=== PATIENT | male | born 1985 | race Caucasian/White ===

== ENCOUNTER 2021-09-09 03:45 | Emergency (ER) | payer MEDICAID, SELFPAY ==
[2021-09-09 03:53] VITALS: BP 139/86; PULSE 98; RESP 22; TEMP 36.6; O2SAT 98; BMI 51.6
--- NOTE | 2021-09-09 04:13 | ED.EYEPROB ---
HPI - Eye Problem General Date Seen: 09/09/21 Chief complaint: Eye Problems Stated complaint: Right eye feels on fire Time Seen by Provider: 09/09/21 04:03 Source: patient Mode of arrival: ambulatory Limitations: no limitations History of Present Illness HPI Narrative: Patient is a 36-year-old male who was recently told that his intra-ocular pressure was elevated. He was set up to see another eye doctor at the [facility] in about a month. He admits he is very anxious about this diagnosis and what it might mean. He went to sleep last evening without any difficulty. He woke during the night and his eye was very red and irritated. He did get back to sleep but when he awoke again eye irritation kept him from being able to go back to sleep. He had a little bit of drainage on his lashes. His vision is normal. He denies headache. He has no foreign body sensation. Related Data Home Medications Medication Instructions Recorded Confirmed No Known Home Medications 09/09/21 09/09/21 Allergies Allergy/AdvReac Type Severity Reaction Status Date / Time No Known Drug Allergies Allergy Verified 09/09/21 03:53 PFSH PFS Social History Smoking Status: Current every day smoker What tobacco products do you use: cigarettes Smoking packs per day: 0.5 Smoking cigarettes per day: 10.0 Do you use any of these nicotine containing products: None Second hand tobacco smoke exposure: No How often do you have a drink containing alcohol: never AUDIT-C Alcohol total score: 0 Non-prescribed substance use: denies use Exam Const: Vital Signs, click to edit/add: Vital Signs - 24 hr 09/09/21 03:53 Temperature 97.8 F Pulse Rate [Left P ulse Oximeter] 98 Respiratory Rate 22 Blood Pressure [Le ft Upper Arm] 139/86 Pulse Oximetry 98 Oxygen Delivery Me thod Room Air Documenting provider has reviewed patient's vital signs: yes Common normals: no apparent distress General appearance: cooperative and comfortable Nutritional appearance: obese Orientation/consciousness: Yes awake, Yes oriented to person, Yes oriented to place and Yes oriented to time HENMT: Common normals: normocephalic, head/scalp atraumatic, external ears normal, EAC's normal, TM's normal bilaterally and external nose normal Head and scalp: normocephalic and atraumatic Nose: external nose normal and no nasal discharge External ear: external ears normal External auditory canal: EAC's normal Tympanic membrane: TM's normal bilaterally Mouth: oral and palatal mucosa normal Throat: posterior oropharynx normal Eye: Common normals: PERRL and EOMs intact bilaterally Visual acuity: acuity normal Eyelid: eyelids normal Conjunctiva: conjunctiva abnormal (Injected with scant yellow drainage) right Cornea: corneas normal Pupil: PERRL Neck & C-Spine: Common normals: full ROM and no lymphadenopathy Resp: Common normals: normal respiratory effort and clear to auscultation bilaterally Auscultation: clear to auscultation bilaterally Cardio: Common normals: regular rate, regular rhythm, S1 normal heart sound and S2 normal heart sound Rate: regular rate Rhythm: regular rhythm Heart sounds: S1 normal and S2 normal Neuro: Sensorium/orientation: awake, oriented to person, oriented to place and oriented to time Course Course Hospital Course: Patient was seen and examined. No sign of corneal abrasion or foreign body. He is very anxious regarding this new diagnosis and he was given lorazepam 0.5 mg orally at his request so that he will be able to sleep when he gets home. He did have a route driver salesperson present. Vital Signs Vital signs: Initial Vital Signs Temperature 97.8 F 09/09/21 03:53 Temperature Source Temporal Artery Scan 09/09/21 03:53 Pulse Rate 98 09/09/21 03:53 Pulse Rhythm 09/09/21 03:53 Respiratory Rate 09/09/21 03:53 Blood Pressure 139/86 09/09/21 03:53 Blood Pressure Mean 103 09/09/21 03:53 Blood Pressure Position Sitting 09/09/21 03:53 Pulse Oximetry 98 09/09/21 03:53 Oxygen Delivery Method 09/09/21 03:53 Vital Signs Temperature 97.8 F 09/09/21 03:53 Pulse Rate 98 09/09/21 03:53 Respiratory Rate 22 09/09/21 03:53 Blood Pressure 139/86 09/09/21 03:53 Pulse Oximetry 98 09/09/21 03:53 Oxygen Delivery Method 09/09/21 03:53 Temperature 97.8 F 09/09/21 03:53 Pulse Rate 98 09/09/21 03:53 Respiratory Rate 22 09/09/21 03:53 Blood Pressure 139/86 09/09/21 03:53 Pulse Oximetry 98 09/09/21 03:53 Oxygen Delivery Method 09/09/21 03:53 Discharge Plan Discharge Clinical Impression: Bacterial conjunctivitis Patient Disposition: Home, Self-Care Condition: Stable Additional Instructions: Gentamicin two drops right eye 4 times daily for the next five days. Hot packs frequently. Follow-up with your eye doctor if symptoms worsen or do not improve. Activity Level: No Restrictions Prescriptions: No Action No Known Home Medications Stand Alone Forms: [employer] Info Instructions
[2021-09-09] MEDS: LORazepam 0.5 MG TABLET PO (04:25)
--- NOTE | 2021-09-09 04:30 | ED.NURSE ---
pt given abx eye drops with MD written order, pt verbalizes understanding.
--- NOTE | 2021-09-10 12:24 | ED.NURSE ---
Phone call from pt's roommate, Jana. Did receive verbal confirmation from the patient that I could speak with Jana prior to discussing his medical question. Patient was under the impression that a prescription for ativan was going to be sent in electronically after being seen by Dr. Dodge on 09/09. Reviewed chart and notes, pt was given dose of ativan x 1 during his ED stay to help with his anxiety regarding his diagnosis of conjunctivitis. Physician note does not indicate that a prescription was going to be sent in. I was able to discuss with Dr. Dodge, who is in clinic in [facility] today. He did give the patient a one time dose but if the patient requires any further ativan he will need to see his primary MD. Discussed with pt's roommate (pt was in the car and could be heard speaking in the background) that the patient would need to see his primary MD for further ativan.
== END 2021-09-09 04:31 | disposition home or self-care (01) ==
PROVIDERS: Emergency Provider Family Medicine; PCP Family Medicine
DX: H10.021 Other mucopurulent conjunctivitis, right eye (principal)
CPT/HCPCS: 99282; 99283; 99284; A9270

== ENCOUNTER 2021-09-10 16:13 | Emergency (ER) | payer MEDICAID, SELFPAY ==
[2021-09-10 16:30] VITALS: BP 125/97; PULSE 129; RESP 26; TEMP 36.2; O2SAT 95; BMI 51.6
[2021-09-10] MEDS: 0.9 % SODIUM CHLORIDE 1000 ml 1,000 ML IV (16:38)
[2021-09-10] MEDS: EPINEPHrine 0.3 MG PEN IM (16:38)
--- NOTE | 2021-09-10 16:47 | ED.NURSE ---
patient is sleeping in the room and feeling better. stated does not feel as sob as before.
[2021-09-10 16:50] VITALS: BP 99/68; PULSE 131; RESP 16; O2SAT 98
[2021-09-10 17:25] VITALS: BP 88/69; PULSE 130; RESP 26; O2SAT 96
--- NOTE | 2021-09-10 17:49 | ED.NURSE ---
c/o pain in the throat and wants something for pain. Dr. Jacobs is in talking with patient and is aware of the pain in the throat. patient is 2 liters via nc O2 at 2 liters. Up to the bathroom via wc. Unable to walk feeling too short of breathe.
[2021-09-10] MEDS: KETOROLAC 15 MG/ML inj IVP (18:09)
[2021-09-10 18:13] LABS: HCO3 VBG 27 mmol/L (21-28); Lactate* 1.4 mmol/L (0.5-1.9); PCO2 VBG 49 mmHG (40-50); pH VBG 7.344 (7.32-7.43)
[2021-09-10 18:14] LABS: Troponin, Point-of-Care* 0.01 ng/ml (0.01-0.04)
[2021-09-10 18:16] LABS: Basophils Absolute Auto 0.01 K/uL (0.00-0.30); Basophils Percent Auto 0.1 % (0.0-3.0); Eosinophils Absolute Auto 0.19 K/uL (0.00-0.50); Eosinophils Percent Auto 2.8 % (0.0-7.0); Hematocrit 44.1 % (37.0-53.0); Hemoglobin* 14.4 gm/dL (13.5-17.5); Immature Granulocytes Abs Auto 0.03 K/uL (0.00-0.30); Lymphocytes Absolute Auto 2.03 K/uL (0.90-2.90); Lymphocytes Percent Auto 29.7 % (20-44); Mean Corpuscular HGB Conc 33 gm/dL (32-36); Mean Corpuscular Hemoglobin 29 pg (26-34); Mean Corpuscular Volume 87 fL (80-100); Monocytes Percent Auto 6.3 % (0.0-11.0); Neutrophils Absolute Auto 4.14 K/uL (1.7-7.0); Neutrophils Percent Auto 60.7 % (42.0-72.0); Platelet Count* 244 K/uL (140-440); RDW Coefficient of Variation % 13.1 % (11.5-15.5); Red Blood Count 5.05 m/uL (4.30-5.90); White Blood Count* 6.83 K/uL (4.50-11.00)
[2021-09-10 18:18] LABS: Slide Review Reflex No
[2021-09-10 18:34] LABS: Chloride* 107 mmol/L (96-114); Sodium* 138 mmol/L (135-149)
--- NOTE | 2021-09-10 18:35 | ED.NURSE ---
patient is wanting to leave AMA and had patient sign the form as Dr. Jacobs wanted the patient to stay due to 130 HR and observe. patient would fall asleep quickly and stated was due to the Benadryl taken. Patient called mother to pickle solution maker from hospital.
[2021-09-10 18:36] LABS: Creatinine* 0.8 mg/dL (0.5-1.5); Est. Creatinine Clearance* 112.98; Estimated Glomerular Filt Rate 116 ml/min
[2021-09-10 18:37] LABS: Blood Urea Nitrogen* 15 mg/dL (5-24); Calcium* 8.2 mg/dL (8.4-10.6); Carbon Dioxide* 26 mmol/L (20-32); Glucose* 138 mg/dL (60-115)
[2021-09-10 18:47] LABS: NT Pro B Type NatriureticPept* 20 PG/mL (0-125)
--- NOTE | 2021-09-10 19:03 | ED.GENADULT ---
HPI - General Adult General Date Seen: 09/10/21 Chief complaint: Allergic Reaction Stated complaint: Swallowed a bee, severe allergy Time Seen by Provider: 09/10/21 16:45 Source: patient Mode of arrival: ambulatory Limitations: no limitations History of Present Illness HPI narrative: 36-year-old male presents emergency room after swallowing a bee. Patient reports he was feeling fine today. He was drinking 80s soft drink that had to be in it. When he swallowed the be went into his throat and he reports the be bit him. He is allergic to beesting. He self administered an EpiPen approximately 1 hour prior to arrival in the emergency department. He also took Benadryl 50 mg at home. On presentation emergency department he is evaluated and found to be breathing normally. He does not have hoarseness in his voice. He is primarily reporting that his throat hurts. Related Data Home Medications Medication Instructions Recorded Confirmed No Known Home Medications 09/09/21 09/09/21 Allergies Allergy/AdvReac Type Severity Reaction Status Date / Time No Known Drug Allergies Allergy Verified 09/09/21 03:53 PFSH PFSH Social History Smoking Status: Current every day smoker What tobacco products do you use: cigarettes Smoking packs per day: 0.5 Smoking cigarettes per day: 10.0 Do you use any of these nicotine containing products: None Second hand tobacco smoke exposure: No How often do you have a drink containing alcohol: never AUDIT-C Alcohol total score: 0 Non-prescribed substance use: denies use Exam Narrative: Exam Narrative: He has a small airway which appears to be chronic due to obesity without obvious inflammation. There is no stridor. Respirations are clear without wheezing. Cardiovascular S1-S2 regular tachycardia with a pulse in the 130-140 range. Abdomen is soft without tenderness or mass. He has good perfusion of all of his extremities. They are warm to touch with good pulses. No significant edema. Const: Vital Signs, click to edit/add: Vital Signs - 24 hr 09/10/21 16:30 09/10/21 16:50 09/10/21 17:25 Temperature 97.2 F L Pulse Rate [Pulse Oximeter] 129 H 131 H 130 H Respiratory Rate 26 H 16 26 H Blood Pressure [Le ft Forearm] 125/97 H 99/68 88/69 L Pulse Oximetry 95 98 96 Oxygen Delivery Me thod Room Air Room Air Nasal Can nula Nasal Cannula Oxygen Flow Rate 2 Documenting provider has reviewed patient's vital signs: yes Course Course Hospital Course: On arrival evaluation patient showed no definite sign of anaphylaxis, there were no rashes, stridor, airway problem, wheezing or hypotension. The only concern was his tachycardia. He was uncertain whether this was due to his use of Benadryl and epinephrine at home or possibly the beginning of anaphylaxis. He received a 2nd dose of epinephrine here on the assumption that this could be anaphylaxis. He was started on IV fluids as well. He was primarily asking for pain medications. He received Toradol. Re-examination after an hour showed no airway problem or wheezing. Tachycardia persisted in the 130s Vital Signs Vital signs: Initial Vital Signs Temperature 97.2 F L 09/10/21 16:30 Temperature Source Temporal Artery Scan 09/10/21 16:30 Pulse Rate 129 H 09/10/21 16:30 Pulse Rhythm 09/10/21 16:30 Respiratory Rate 26 H 09/10/21 16:30 Blood Pressure 125/97 H 09/10/21 16:30 Blood Pressure Mean 106 09/10/21 16:30 Blood Pressure Position Sitting 09/10/21 16:30 Pulse Oximetry 95 09/10/21 16:30 Oxygen Delivery Method 09/10/21 16:30 Vital Signs Temperature 97.2 F L 09/10/21 16:30 Pulse Rate 129 H 09/10/21 16:30 Respiratory Rate 26 H 09/10/21 16:30 Blood Pressure 125/97 H 09/10/21 16:30 Pulse Oximetry 95 09/10/21 16:30 Oxygen Delivery Method 09/10/21 16:30 Temperature 97.2 F L 09/10/21 16:30 Pulse Rate 130 H 09/10/21 17:25 Respiratory Rate 26 H 09/10/21 17:25 Blood Pressure 88/69 L 09/10/21 17:25 Pulse Oximetry 96 09/10/21 17:25 Oxygen Delivery Method 09/10/21 17:25 Oxygen Flow Rate 2 09/10/21 16:50 Medical Decision Making Lab Data Labs: Lab Results 09/10/21 09/10/21 09/10/21 Range/Units 16:20 16:20 16:20 WBC 6.83 (4.50-11.00) K/uL RBC 5.05 (4.30-5.90) m/uL Hgb 14.4 (13.5-17.5) gm/dL Hct 44.1 (37.0-53.0) % MCV 87 (80-100) fL MCH 29 (26-34) pg MCHC 33 (32-36) gm/dL RDW Coeff of Sarahi 13.1 (11.5-15.5) % Plt Count 244 (140-440) K/uL Neut % (Auto) 60.7 (42.0-72.0) % Lymph % (Auto) 29.7 (20-44) % Liberty % (Auto) 6.3 (0.0-11.0) % Eos % (Auto) 2.8 (0.0-7.0) % Baso % (Auto) 0.1 (0.0-3.0) % Neut # (Auto) 4.14 (1.7-7.0) K/uL Lymph # (Auto) 2.03 (0.90-2.90) K/uL Liberty # (Auto) 0.40 (0.00-0.90) K/UL Eos # (Auto) 0.19 (0.00-0.50) K/uL Baso # (Auto) 0.01 (0.00-0.30) K/uL Abs Immat Gran (auto) 0.03 (0.00-0.30) K/uL VBG pH 7.344 (7.32-7.43) VBG pCO2 49 (40-50) mmHG VBG pO2 64.0 H (25-47) mmHG VBG HCO3 27 (21-28) mmol/L Sodium 138 (135-149) mmol/L Potassium 4.0 (3.6-5.1) mmol/L Chloride 107 (96-114) mmol/L Carbon Dioxide 26 (20-32) mmol/L BUN 15 (5-24) mg/dL Creatinine 0.8 (0.5-1.5) mg/dL Estimated Creat Clear 112.98 Estimated GFR 116 ml/min Glucose 138 H (60-115) mg/dL Lactate 1.4 (0.5-1.9) mmol/L Calcium 8.2 L (8.4-10.6) mg/dL NT-Pro-B Natriuret Pep 20 (0-125) PG/mL POC Troponin I (0.01-0.04) ng/ml 09/10/21 Range/Units 16:20 WBC (4.50-11.00) K/uL RBC (4.30-5.90) m/uL Hgb (13.5-17.5) gm/dL Hct (37.0-53.0) % MCV (80-100) fL MCH (26-34) pg MCHC (32-36) gm/dL RDW Coeff of Sarahi (11.5-15.5) % Plt Count (140-440) K/uL Neut % (Auto) (42.0-72.0) % Lymph % (Auto) (20-44) % Liberty % (Auto) (0.0-11.0) % Eos % (Auto) (0.0-7.0) % Baso % (Auto) (0.0-3.0) % Neut # (Auto) (1.7-7.0) K/uL Lymph # (Auto) (0.90-2.90) K/uL Liberty # (Auto) (0.00-0.90) K/UL Eos # (Auto) (0.00-0.50) K/uL Baso # (Auto) (0.00-0.30) K/uL Abs Immat Gran (auto) (0.00-0.30) K/uL VBG pH (7.32-7.43) VBG pCO2 (40-50) mmHG VBG pO2 (25-47) mmHG VBG HCO3 (21-28) mmol/L Sodium (135-149) mmol/L Potassium (3.6-5.1) mmol/L Chloride (96-114) mmol/L Carbon Dioxide (20-32) mmol/L BUN (5-24) mg/dL Creatinine (0.5-1.5) mg/dL Estimated Creat Clear Estimated GFR ml/min Glucose (60-115) mg/dL Lactate (0.5-1.9) mmol/L Calcium (8.4-10.6) mg/dL NT-Pro-B Natriuret Pep (0-125) PG/mL POC Troponin I 0.01 (0.01-0.04) ng/ml Discharge Plan Discharge Clinical Impression: Sinus tachycardia, Accidental bee sting Patient Disposition: Left Against Medical Advice Condition: Unchanged Additional Instructions: Patient left against medical advice. He is urged to return if trouble breathing, swelling in his throat, trouble swallowing. Activity Level: Activity as Tolerated Prescriptions: No Action No Known Home Medications Follow Up/Referrals: Michelle Mallory MD [Primary Care Provider] - Stand Alone Forms: [employer] Info Instructions
== END 2021-09-10 18:50 | disposition left against medical advice (07) ==
PROVIDERS: Emergency Provider Family Medicine; PCP Family Medicine
DX: T63.441A Toxic effect of venom of bees, accidental (unintentional), initial encounter (principal); R00.0 Tachycardia, unspecified
CPT/HCPCS: 36415; 80048; 81003; 82803; 83605; 83880; 84484; 85025; 96372; 96374; 99283; 99284; J0171; J1885; J7030

== ENCOUNTER 2021-10-08 18:09 | Emergency (ER) | payer MEDICAID, SELFPAY ==
[2021-10-08 18:11] VITALS: BP 165/130; PULSE 92; RESP 20; TEMP 36.6; O2SAT 96; BMI 53.3
--- NOTE | 2021-10-08 18:38 | ED.GENADULT ---
HPI - General Adult General Chief complaint: Unspecified Complaint, Adult Stated complaint: Tongue Swelling Time Seen by Provider: 10/08/21 18:19 History of Present Illness HPI narrative: 36-year-old male coming in today concerned about tongue swelling. He states that he gets this frequently, and that he is being seen by an ENT specialist. He comes in today because his tongue is swollen and hurts. He believes he bit it last night. He is requesting pain medications. He denies difficulty breathing or swallowing. States that again, this happens frequently and that he just needs to get through a couple days of pain before he can sees ENT specialist. He denies any systemic symptoms, no fevers or chills. No nausea or vomiting. He states that he does chew tobacco but he ?quit? 1 week ago. Related Data Previous Rx's Medication Instructions Recorded prednisone 20 mg tablet 20 mg PO DAILY 5 days #5 tabs 10/08/21 Allergies Allergy/AdvReac Type Severity Reaction Status Date / Time No Known Drug Allergies Allergy Verified 09/09/21 03:53 Review of Systems Status of ROS: Reports: 10 or more systems reviewed and unremarkable except as noted in History and below [facility] Social History Smoking Status: Current every day smoker What tobacco products do you use: cigarettes Smoking packs per day: 0.5 Smoking cigarettes per day: 10.0 Do you use any of these nicotine containing products: None Second hand tobacco smoke exposure: No How often do you have a drink containing alcohol: never AUDIT-C Alcohol total score: 0 Non-prescribed substance use: denies use Exam Narrative: Exam Narrative: Obese, disheveled, well-developed patient in no acute distress. Alert and oriented. Answers questions appropriately. Mood and affect are appropriate. Thoughts are goal oriented and rational. No tangential or magical thinking noted. Patient speaks in full sentences without needing to catch his breath. Speech is not slurred or pressured. HEENT: Normocephalic atraumatic. Pupils are equally round reactive to light. Extraocular muscles are intact. Conjunctivae are moist without any icterus noted. Moist mucous membranes. Posterior pharynx is normal. Neck is soft without any lymphadenopathy or thyromegaly. No masses are appreciated. His tongue does not appear swollen however underneath his tongue he has several areas of ulcerations. His lips and the floor of the mouth have chewing tobacco residue. He does have teeth burch on the top of the tongue, the tongue is not lacerated however. Cardiovascular: Heart is regular rate and rhythm S1 and S2 are present without any murmurs. Lungs: Clear to auscultation bilaterally no wheezes rhonchi or rales are appreciated. Patient takes deep breaths without any discomfort. Skin: Well perfused without any obvious rashes. Const: Vital Signs, click to edit/add: Vital Signs - 24 hr 10/08/21 18:11 Temperature 97.9 F Pulse Rate [Right Pulse Oximeter] 92 Respiratory Rate 20 Blood Pressure [Ri ght Upper Arm] 165/130 H Pulse Oximetry 96 Oxygen Delivery Me thod Room Air Course Course Hospital Course: Discussed with physical exam findings with the patient who states that ?this happens all the time?. We discussed antiviral medications which the patient felt would not be effective. He again requested narcotic pain medication. We discussed that if he feels that his tongue was swollen that the steroid would be a better option and he is agreeable to this. He did request 1 narcotic in the ER to help with his acute pain right now. Patient received hydrocodone-APAP. Will be sent home on prednisone. He states he already has a follow-up with ENT scheduled. Vital Signs Vital signs: Initial Vital Signs Temperature 97.9 F 10/08/21 18:11 Temperature Source Temporal Artery Scan 10/08/21 18:11 Pulse Rate 92 10/08/21 18:11 Respiratory Rate 20 10/08/21 18:11 Blood Pressure 165/130 H 10/08/21 18:11 Blood Pressure Mean 141 10/08/21 18:11 Blood Pressure Position Sitting 10/08/21 18:11 Pulse Oximetry 96 10/08/21 18:11 Oxygen Delivery Method 10/08/21 18:11 Vital Signs Temperature 97.9 F 10/08/21 18:11 Pulse Rate 92 10/08/21 18:11 Respiratory Rate 20 10/08/21 18:11 Blood Pressure 165/130 H 10/08/21 18:11 Pulse Oximetry 96 10/08/21 18:11 Oxygen Delivery Method 10/08/21 18:11 Temperature 97.9 F 10/08/21 18:11 Pulse Rate 92 10/08/21 18:11 Respiratory Rate 20 10/08/21 18:11 Blood Pressure 165/130 H 10/08/21 18:11 Pulse Oximetry 96 10/08/21 18:11 Oxygen Delivery Method 10/08/21 18:11 Medical Decision Making MDM Narrative Medical decision making narrative: 36-year-old male with recurrent tongue pain and swelling. Patient will be sent home with prednisone. He has and ENT appointment already scheduled. Understands to return to the ED if he has trouble breathing or swallowing. Patient was agreeable had no other questions. I did look the patient up on the [place] monitoring program, looks like his last prescription for narcotics was in June of this year. Discharge Plan Discharge Clinical Impression: Tongue pain Patient Disposition: Home, Self-Care Condition: Stable Additional Instructions: Return to the ER if you have any difficulty breathing or swallowing. Take steroids as prescribed. Follow-up with ENT. Prescriptions: New prednisone 20 mg tablet 20 mg PO DAILY 5 Days Qty: 5 0RF Follow Up/Referrals: Michelle Mallory MD [Primary Care Provider] - Stand Alone Forms: [employer] Info Instructions
[2021-10-08] MEDS: HYDROCODONE/ACETAMIN 7.5-325 TABLET 1 TAB PO (18:52)
== END 2021-10-08 19:19 | disposition home or self-care (01) ==
LOC: ED 19:14
PROVIDERS: Emergency Provider Family Medicine; PCP Family Medicine
DX: K14.6 Glossodynia (principal)
CPT/HCPCS: 99283; A9270

== ENCOUNTER 2021-10-09 07:40 | Emergency (ER) | payer MEDICAID, SELFPAY ==
[2021-10-09 07:45] VITALS: BP 131/101; PULSE 92; RESP 22; TEMP 35.2; O2SAT 95; BMI 53.3
--- NOTE | 2021-10-09 07:56 | ED.NURSE ---
Pt left ER without instructions after seeing MD.
--- NOTE | 2021-10-09 07:57 | ED_ITS ---
HPI - General Adult General Time Seen by Provider: 07:57 Date Seen: 10/09/21 Chief complaint: Dental/Oral/Mouth Injury/Pain Stated complaint: Swollen tongue Time Seen by Provider: 10/09/21 07:51 Source: patient Mode of arrival: ambulatory Limitations: no limitations History of Present Illness HPI narrative: PATIENT IS A 36-YEAR-OLD MALE who presents with tongue pain. He is having no difficulty breathing or swallowing. He has some aphthous ulcers under his tongue. He was seen last night given a dose of narcotic and started on prednisone. He has no other complaints. He is pretty adamant that he needs narcotics. Related Data Previous Rx's Medication Instructions Recorded prednisone 20 mg tablet 20 mg PO DAILY 5 days #5 tabs 10/08/21 Allergies Allergy/AdvReac Type Severity Reaction Status Date / Time No Known Drug Allergies Allergy Verified 09/09/21 03:53 Review of Systems Narrative: Patient is not having shortness of breath, patient is not having any difficulty swallowing PFSH [facility] Social History Smoking Status: Current every day smoker What tobacco products do you use: cigarettes Smoking packs per day: 0.5 Smoking cigarettes per day: 10.0 Do you use any of these nicotine containing products: None Second hand tobacco smoke exposure: No How often do you have a drink containing alcohol: never AUDIT-C Alcohol total score: 0 Non-prescribed substance use: denies use service: No Exam Narrative: Exam Narrative: Objective: Patient's vital signs unremarkable his O2 sat is excellent, he talks in even unlabored sentences. No facial asymmetry, he opens his mouth and his tongue has some aphthous type ulcers under his tongue, tongues not swallowing, throat not swollen Const: Vital Signs, click to edit/add: Vital Signs - 24 hr 10/09/21 07:45 Temperature 95.4 F L Pulse Rate [Right Pulse Oximeter] 92 Respiratory Rate 22 Blood Pressure [Le ft Upper Arm] 131/101 H Pulse Oximetry 95 Oxygen Delivery Me thod Room Air Course Vital Signs Vital signs: Initial Vital Signs Temperature 95.4 F L 10/09/21 07:45 Temperature Source Temporal Artery Scan 10/09/21 07:45 Pulse Rate 92 10/09/21 07:45 Respiratory Rate 22 10/09/21 07:45 Blood Pressure 131/101 H 10/09/21 07:45 Blood Pressure Mean 111 10/09/21 07:45 Pulse Oximetry 95 10/09/21 07:45 Oxygen Delivery Method 10/09/21 07:45 Vital Signs Temperature 95.4 F L 10/09/21 07:45 Pulse Rate 92 10/09/21 07:45 Respiratory Rate 22 10/09/21 07:45 Blood Pressure 131/101 H 10/09/21 07:45 Pulse Oximetry 95 10/09/21 07:45 Oxygen Delivery Method 10/09/21 07:45 Temperature 95.4 F L 10/09/21 07:45 Pulse Rate 92 10/09/21 07:45 Respiratory Rate 22 10/09/21 07:45 Blood Pressure 131/101 H 10/09/21 07:45 Pulse Oximetry 95 10/09/21 07:45 Oxygen Delivery Method 10/09/21 07:45 Medical Decision Making MDM Narrative Medical decision making narrative: The patient did not report that he was here initially last night, but was here last night got a doses narcotic medicine and started on prednisone. I think that was appropriate and I think at this point simply Advil, Tylenol, and orally would be reasonable to use for inflammation, and let the prednisone run its course. He will have some discomfort in this area as this is normal. He was very upset that narcotics would not be given, demonstrating a type of chronic pain behavior. I do not think that would be indicated in this visit medical condition. The patient got up and left and stated ?that is retarded, this place is fucking horrible?. ?i'll find a new hospital ?. Again, the patient's medical condition does not seem like it warrants narcotic medication, especially in light of his massively elevated BMI, risk of sleep apnea, risk of breathing difficulty on narcotics. He clearly was upset by this discussion. Discharge Plan Discharge Clinical Impression: Tongue pain Patient Disposition: Home, Self-Care Condition: Stable Additional Instructions: The patient got up and left before any dietary discussion, or discussion of follow-up could be entertained. Activity Level: No Restrictions Prescriptions: No Action prednisone 20 mg tablet 20 mg PO DAILY 5 Days Qty: 5 0RF Follow Up/Referrals: Michelle Mallory MD [Primary Care Provider] - Stand Alone Forms: [employer] Info Instructions
== END 2021-10-09 07:56 | disposition home or self-care (01) ==
PROVIDERS: Emergency Provider Family Medicine; PCP Family Medicine
DX: K14.8 Other diseases of tongue (principal)
CPT/HCPCS: 99282; 99283

== ENCOUNTER 2022-05-04 09:03 | Emergency (ER) | payer MEDICAID, SELFPAY ==
[2022-05-04 09:25] VITALS: BP 145/80; PULSE 103; RESP 16; TEMP 36.2; O2SAT 96; BMI 53.3
--- NOTE | 2022-05-04 16:48 | ED_ITS ---
HPI - Ear Problem General Date Seen: 05/04/22 Chief complaint: Ear/Nose/Throat Problem Stated complaint: ear piece stuck in right ear Time Seen by Provider: 05/04/22 09:04 Source: patient Mode of arrival: ambulatory Limitations: no limitations History of Present Illness HPI Narrative: Patient is a very nice 37-year-old gentleman who got part of his ear piece stuck in his right external canal he did try to get it out using a Q-tip I was unable to do this and presents here for help. This occurred approximately 1 hour before being seen. MD Complaint: ear pain Related Data Allergies Allergy/AdvReac Type Severity Reaction Status Date / Time No Known Drug Allergies Allergy Verified 09/09/21 03:53 Review of Systems Status of ROS: Reports: 6 or more systems reviewed and unremarkable except as noted in History and below PFSH PFSH Social History Smoking Status: Current every day smoker What tobacco products do you use: cigarettes Smoking packs per day: 0.5 Smoking cigarettes per day: 10.0 Do you use any of these nicotine containing products: None Second hand tobacco smoke exposure: No How often do you have a drink containing alcohol: never AUDIT-C Alcohol total score: 0 Non-prescribed substance use: denies use service: No Exam Narrative: Exam Narrative: Patient is examined there is negative tragus sign no redness is noted around his ear, there is no blood coming out of his external canal, using the otoscope as able to see the black silicone ear piece, in his external canal, I was able to grab this using an alligator forceps atraumatically and bring this out of his ear, he really appreciated this, and reported improvement of his symptoms, there was some redness of his sternal canal which I think would be benefit from use of corticosporinfor couple days. Const: Vital Signs, click to edit/add: Vital Signs - 24 hr 05/04/22 09:25 Temperature 97.2 F L Pulse Rate [Pulse Oximeter] 103 H Respiratory Rate 16 Blood Pressure [Ri ght Upper Arm] 145/80 H Pulse Oximetry 96 Oxygen Delivery Me thod Room Air Course Vital Signs Vital signs: Initial Vital Signs Temperature 97.2 F L 05/04/22 09:25 Temperature Source Temporal Artery Scan 05/04/22 09:25 Pulse Rate 103 H 05/04/22 09:25 Pulse Rhythm Regular 05/04/22 09:25 Respiratory Rate 16 05/04/22 09:25 Blood Pressure 145/80 H 05/04/22 09:25 Blood Pressure Mean 101 05/04/22 09:25 Blood Pressure Position Sitting 05/04/22 09:25 Pulse Oximetry 96 05/04/22 09:25 Oxygen Delivery Method Room Air 05/04/22 09:25 Vital Signs Temperature 97.2 F L 05/04/22 09:25 Pulse Rate 103 H 05/04/22 09:25 Respiratory Rate 16 05/04/22 09:25 Blood Pressure 145/80 H 05/04/22 09:25 Pulse Oximetry 96 05/04/22 09:25 Oxygen Delivery Method Room Air 05/04/22 09:25 Temperature 97.2 F L 05/04/22 09:25 Pulse Rate 103 H 05/04/22 09:25 Respiratory Rate 16 05/04/22 09:25 Blood Pressure 145/80 H 05/04/22 09:25 Pulse Oximetry 96 05/04/22 09:25 Oxygen Delivery Method Room Air 05/04/22 09:25 Discharge Plan Discharge Clinical Impression: Acute foreign body of right ear canal, Otitis externa Patient Disposition: Home, Self-Care Condition: Improved Instructions: Swimmer's Ear (ED), Ear Foreign Body (ED) Additional Instructions: Use the drops as directed over the next 3-5 days this should help, in the future disease ear to get these out if you do not tried up pushed him further in but I know the feeling of trying to do it at home. Activity Level: No Restrictions Follow Up/Referrals: Michelle Mallory MD [Staff Physician] - Stand Alone Forms: [employer] Info Instructions
== END 2022-05-04 11:12 | disposition home or self-care (01) ==
LOC: ED 11:11
PROVIDERS: Emergency Provider Family Medicine; PCP Student in an Organized Health Care Education/Training Program
DX: T16.1XXA Foreign body in right ear, initial encounter (principal); H60.91 Unspecified otitis externa, right ear
CPT/HCPCS: 69200; 99283

== ENCOUNTER 2022-09-04 21:37 | Emergency (ER) | payer MEDICAID, SELFPAY ==
[2022-09-04 22:14] VITALS: BP 132/81; PULSE 99; RESP 18; TEMP 36.3; O2SAT 96; BMI 53.3
--- NOTE | 2022-09-05 13:55 | ED_ITS ---
HPI - General Adult General Chief complaint: Constipation Stated complaint: constipation Time Seen by Provider: 09/04/22 22:31 History of Present Illness HPI narrative: 37-year-old man presenting to the emergency department with concern of constipation. Notes very hard or painful to have a bowel movement. He has not had a bowel movement for 4 days. Is not actually having persistent abdominal pain although it he does say that it will build and cramp across his abdomen. He is not noting any hematochezia. He has been constipated before. Mom has been mixing up MiraLax for him he is unsure how much. He has been drinking Julio-Aid. Does not apparently drink water really. He has not had any fevers. At the end of our interview he then says is been having headache and wonders if he can have some acetaminophen for this. Related Data Home Medications Medication Instructions Recorded Confirmed albuterol sulfate 90 mcg/actuation 1 - 2 puff inhalation Q4H PRN 09/04/22 09/04/22 aerosol inhaler (Ventolin HFA) dyspnea aripiprazole 10 mg tablet 10 mg PO DAILY 09/04/22 09/04/22 atenolol 25 mg tablet 25 mg PO DAILY 09/04/22 09/04/22 bupropion HCl 150 mg 24 hr tablet, 150 mg PO QAM 09/04/22 09/04/22 extended release buspirone 10 mg tablet 10 mg PO BID 09/04/22 09/04/22 trazodone 50 mg tablet mg PO 09/04/22 Previous Rx's Medication Instructions Recorded magnesium citrate 300 ml PO DAILY #592 mL 09/04/22 sodium phosphates 19 gram-7 118 ml [place] DAILY PRN constipation 2 09/04/22 gram/118 mL enema (Fleet Enema) days #230 mL Allergies Allergy/AdvReac Type Severity Reaction Status Date / Time No Known Drug Allergies Allergy Verified 09/04/22 22:17 Review of Systems Status of ROS: Reports: 6 or more systems reviewed and unremarkable except as noted in History and below PFSH PFS Social History Smoking Status: Current every day smoker What tobacco products do you use: cigarettes Smoking packs per day: 0.5 Smoking cigarettes per day: 10.0 Do you use any of these nicotine containing products: None Second hand tobacco smoke exposure: No How often do you have a drink containing alcohol: never AUDIT-C Alcohol total score: 0 Non-prescribed substance use: denies use service: No Exam Narrative: Exam Narrative: Pleasant NAD. Breathing easily. Skin is warm and dry. Disheveled. Abdomen is overweight soft and nontender. Present bowel sounds. Pulses little elevated in a regular rhythm. Rectal exam was not done Const: Vital Signs, click to edit/add: Vital Signs - 24 hr 09/04/22 22:14 Temperature 97.4 F L Pulse Rate [Left P ulse Oximeter] 99 Respiratory Rate 18 Blood Pressure [Ri ght Upper Arm] 132/81 Pulse Oximetry 96 Oxygen Delivery Me thod Room Air Documenting provider has reviewed patient's vital signs: yes Course Vital Signs Vital signs: Initial Vital Signs Temperature 97.4 F L 09/04/22 22:14 Temperature Source Temporal Artery Scan 09/04/22 22:14 Pulse Rate 99 09/04/22 22:14 Respiratory Rate 18 09/04/22 22:14 Blood Pressure 132/81 09/04/22 22:14 Blood Pressure Mean 98 09/04/22 22:14 Blood Pressure Position Sitting 09/04/22 22:14 Pulse Oximetry 96 09/04/22 22:14 Oxygen Delivery Method Room Air 09/04/22 22:14 Vital Signs Temperature 97.4 F L 09/04/22 22:14 Pulse Rate 99 09/04/22 22:14 Respiratory Rate 18 09/04/22 22:14 Blood Pressure 132/81 09/04/22 22:14 Pulse Oximetry 96 09/04/22 22:14 Oxygen Delivery Method Room Air 09/04/22 22:14 Temperature 97.4 F L 09/04/22 22:14 Pulse Rate 99 09/04/22 22:14 Respiratory Rate 18 09/04/22 22:14 Blood Pressure 132/81 09/04/22 22:14 Pulse Oximetry 96 09/04/22 22:14 Oxygen Delivery Method Room Air 09/04/22 22:14 Medical Decision Making MDM Narrative Medical decision making narrative: Does clearly seem to have constipation. Otherwise seems generally well. I suspect generally poor dietary choices are contributing in large part to constipation I did offer though IV and other evaluation. He would just appreciate help with having a bowel movement. I did discuss placement of an enema here but he was pleased to know that he could also leave with medications to use at home as he does not have any medication for co-pay right now. He had asked for acetaminophen for headache but when offered apparently declined it prior to departure Did request to fleets enemas and Mag citrate to company home. See patient discharge plan Discharge Plan Discharge Clinical Impression: Headache, Abdominal pain, Constipation Patient Disposition: Home, Self-Care Condition: Stable Instructions: Fleet Enema (ED) Additional Instructions: Important to stay well hydrated and eat your fruits and vegetables. Probably need to drink 2-3 L of water equivalent liquid daily generally. Since you have MiraLax, I would take maybe 3 doses 1 each in 8 oz of liquid at least by noon. Can then start adjusting this dosing to stool consistency and keep dosing probably for 2 weeks. Longer-term alternative to MiraLax might be something like Benefiber or Citrucel. I would also place an enema and repeat in an hour if no good result. You could also place a suppository overnight. Both of these are available [id number] as well. Magnesium citrate is available also [id number]. I would drink a bottle of that and repeat the next day if no good result. Return for uncontrolled pain, repeated vomiting, fever. Prescriptions: New magnesium citrate Solution 300 ml PO DAILY Qty: 592 0RF Fleet Enema 19-7 gram/118 mL enema 118 ml [place] DAILY PRN (Reason: constipation) 2 Days Qty: 230 0RF No Action trazodone 50 mg tablet PO atenolol 25 mg tablet 25 mg PO DAILY buspirone 10 mg tablet 10 mg PO BID albuterol sulfate [Ventolin HFA] 90 mcg/actuation HFA aerosol inhaler 1 - 2 puff INHALATION Q4H PRN (Reason: dyspnea) aripiprazole 10 mg tablet 10 mg PO DAILY bupropion HCl 150 mg tablet extended release 24 hr 150 mg PO QAM Follow Up/Referrals: ADA LANDIS DO [Primary Care Provider] - Stand Alone [facility]
== END 2022-09-04 23:08 | disposition home or self-care (01) ==
LOC: ED 22:58
PROVIDERS: Emergency Provider Family Medicine; PCP Student in an Organized Health Care Education/Training Program
DX: K59.00 Constipation, unspecified (principal); R51.9 Headache, unspecified
CPT/HCPCS: 99283

== ENCOUNTER 2023-11-02 14:32 | Outpatient (CLI) | payer SELFPAY ==
--- OUTSIDE RECORDS SUMMARY | 2023-11-05 03:02 | XMS_ITS | Clinical Summary ---
Author Organization [facility] Address [place], [place] [address] Care Team Providers Care Hospital Internship Name Role Phone Clinic, [facility] Primary Care Pr ovider Allergies Active Allergy [...] of 50.0 to 59.9 in adult 07/31/2010 Encounters Date Type Department Care Team Description 11/03/2023 Patient Outreach [facility] Care [facility] - [address] [phone] Rosalba Chun Care Coordination (INITIAL OUTREACH/) from Last 3 Months Immunizations Name Administration Dates Next Due Influenza, [...] T Respiratory Rate 22 02/12/2021 2:12 PM NURSE ASSISTANT Oxygen Saturation 94% 05/17/2022 1:49 PM CDT [...] 02/12/2021, Additional history exists COVID-19 vaccine series (2023- season) 2023 Influenza for age 9-49 10/09/2023 10/10/2020, 2019 Lipids for age 35-44 03/11/2027 03/11/2022, 08/01/19 11 Tetanus booster 08/17/2027 08/16/2017, 04/19/2011 Tdap Completed 08/16/2017 HIV for age 15-65 Completed 03/11/2022 Hepatitis C screening for ag e 18-79 Completed 03/11/2022 Procedures Procedure Name Priority Date/Time Associated Diagnosis Comments LC HIV-1/O/2, 4TH GENERATION Routine 03/11/2022 2:30 PM NURSE ASSISTANT Screening for HIV (human immunodeficiency virus) LC HCV ANTIBODY RFX TO QUANT PCR Routine 03/11/2022 2:30 PM NURSE ASSISTANT Need for hepatitis C screening test LC LIPID PANEL AND CHOL/HDL RATIO Routine 03/11/2022 2:30 PM NURSE ASSISTANT Lipid screening from Last 3 Months or Most Recently Relevant to Health Maintenance Results * (ABNORMAL) LC LIPID PANEL AND CHOL/HDL RATIO (03/11/2022 2:30 PM NURSE ASSISTANT) Cholesterol, Total 218(H) 100 - 199 mg/dL 03/13/2022 11:08 AM [facility]SE ASSISTANT [facility] Triglycerides 151(H) 0 - 149 mg/dL 03/13/2022 11:08 AM [facility]URSE ASSISTANT [facility] HDL Cholesterol 53 >39 mg/dL 11:08 AM [facility]URSE ASSISTANT [facility] VLDL Cholesterol Bulmaro 27 5 - 40 mg/dL 03/13/2022 11:08 AM [facility] ([facility]) LDL Chol Calc (NIH) 138(H) 0 - 99 mg/dL 03/13/2022 11:08 AM [facility] ([facility]) T. Chol/HDL Ratio 4.1 0.0 - 5.0 ratio 03/13/2022 11:08 AM [facility] ([facility]) Comment: ?T. Chol/HDL Ratio ?Men ??Women ?1/2 Avg.Risk ??3.4 ?3.3 ?Avg.Risk ??5.0 ?4.4 ? 2X Avg.Risk ??9.6 ?7.1 ? 3X Avg.Risk 23.4 ?? 11.0 Blood BLOOD SPECIMEN / Unknown Venipuncture / Unknown 03/11/2022 2:30 PM NURSE ASSISTANT 03/11/2022 2:35 PM NURSE ASSISTANT [facility] ([facility]ET) - 03/13/2022 11:08 AM NURSE ASSISTANT Performed at: ??01 - [facility] [address] [facility], [place], [place] ??[id number] Roller Leveler Operator: George Mooney MD, Phone: ??[phone] Patircia Ball DO SEND OUTS Performing Organization Address [facility] Co de Phone Number [facility] ([facility]) [address] [place] [address] * HCV ANTIBODY RFX TO QUANT PCR (03/11/2022 2:30 PM NURSE ASSISTANT) HCV Ab <0.1 0.0 - 0.9 s/co ratio 03/14/2022 10:06 PM NURSE ASSISTANT [facility] ([facility]) Blood BLOOD SPECIMEN / Unknown Venipuncture / Unknown 03/11/2022 2:30 PM NURSE ASSISTANT 03/11/2022 2:35 PM NURSE ASSISTANT Narrative [facility] ([facility]) - 03/14/2022 10:06 PM NURSE ASSISTANT Performed at: ??01 - [facility] [place], [place] ??[id number] Roller Leveler Operator: George Mooney MD, Phone: ??[phone] Patricia Ball DO LABORATORY Performing Organization Address [facility] Co de Phone Number [facility] ([facility]) [address] [place] [address] * LC HIV-1/O/2, 4TH GENERATION (03/11/2022 2:30 PM NURSE ASSISTANT) Pathologist [facility] HIV Scr 4th Gen Non Reactive Non Reactive 03/13/2022 11:08 AM NURSE ASSISTANT [facility] ([facility]) Comment: HIV Negative HIV-1/HIV-2 antibodies and HIV-1 p24 antigen were NOT detected. There is no laboratory evidence of HIV infection. Blood BLOOD SPECIMEN / Unknown Venipuncture / Unknown 03/11/2022 2:30 PM NURSE ASSISTANT 03/11/2022 2:35 PM NURSE ASSISTANT Narrative [facility] ([facility]) - 03/13/2022 11:08 AM NURSE ASSISTANT Performed at: ??01 - [facility] [employer] [place], [place] ??[id number] Roller Leveler Operator: George Mooney MD, Phone: ??[phone] Patricia Ball DO LABORATORY [facility] ([facility]) [facility] [place] [address], from Last 3 Months or Most Recently Relevant to Health Maintenance Care Teams Hospital Internship Relationship Specialty Start Date End Date Clinic, [facility] [address] [place] [address] PCP - General 09/19/23
== END 2023-11-02 14:33 | disposition home or self-care (01) ==
LOC: AMB 11-05 03:01
PROVIDERS: PCP Student in an Organized Health Care Education/Training Program; Visit Provider Family Medicine
DX: R07.89 Other chest pain (principal)
CPT/HCPCS: A0425; A0427

== ENCOUNTER 2023-11-02 14:59 | Emergency (ER) | payer SELFPAY ==
[2023-11-02 15:07] VITALS: BP 120/88; PULSE 92; RESP 20; TEMP 37; O2SAT 96; BMI 51.7
--- NOTE | 2023-11-02 15:28 | ED.GENADULT ---
HPI - General Adult General Date Seen: 11/02/23 Chief complaint: Unspecified Complaint, Adult Stated complaint: held breath until he passed out Time Seen by Provider: 11/02/23 15:27 History of Present Illness HPI narrative: 38-year-old male presents to the ER today in police custody for nursing home clearance. He was apparently under arrest today and then held his breath until he passed out. He has a past medical history of asthma (albuterol inhaler), anxiety, depression, substance abuse. He is brought to the ER today under arrest, in custody of police. Please brought him here to the ER today for clearance to take him to nursing home. Report from the patient is these been sick for a few days. He has had low energy, poor appetite. He has had some nasal congestion. He has had headache. Patient says that the police showed up, ?for no reason? and arrested him today. He says he does not want to go to nursing home. He says he hopes he has COVID because that might keep him from going to nursing home. Patient also has a mild generalized headache. No blurry vision. No vomiting. He is complaining that he had a bloody nose because ?they put something up my nose? Report from police officers that he was under arrest today. He was anxious did not want to go to nursing home. He through self to the floor and had some motor movements that appeared to be intentional, mimicking a seizure. He was holding his breath. This may have been an intentional breath-holding spell. First responders did put in a nasal airway. Once the put the nasal airway in he immediately woke up and started breathing. He was able to get himself off the floor. It sounds like it was the nasal airway that cause some nose bleeding from his right nostril. He did not have any postictal phase. The patient also says that he took ?3 meth tablets? today because he wanted to overdose so that he can keep himself from going to nursing home. He was not trying to hurt himself or commit suicide. Because of the breath-holding spell, they brought him here to the ER to be cleared. He says that he has been feeling pretty run down and weak for a couple of days and that he was thinking about coming to the ER this morning, but he does not have a ride. He is worried he might have COVID. No coughing but he does have nasal congestion. He has a headache. Related Data Home Medications ?Medication ?Instructions ?Recorded ?Confirmed albuterol sulfate 90 mcg/actuation 1 - 2 puff inhalation Q4H PRN 09/04/22 09/04/22 aerosol inhaler (Ventolin HFA) dyspnea aripiprazole 10 mg tablet 10 mg PO DAILY 09/04/22 09/04/22 atenolol 25 mg tablet 25 mg PO DAILY 09/04/22 09/04/22 bupropion HCl 150 mg 24 hr tablet, 150 mg PO QAM 09/04/22 09/04/22 extended release buspirone 10 mg tablet 10 mg PO BID 09/04/22 09/04/22 trazodone 50 mg tablet mg PO 09/04/22 Previous Rx's ?Medication ?Instructions ?Recorded magnesium citrate 300 ml PO DAILY #592 mL 09/04/22 sodium phosphates 19 gram-7 118 ml [place] DAILY PRN constipation 2 09/04/22 gram/118 mL enema (Fleet Enema) days #230 mL Allergies Allergy/AdvReac Type Severity Reaction Status Date / Time No Known Drug Allergies Allergy Verified 09/04/22 22:17 [facility] Social History Smoking Status: Current every day smoker What tobacco products do you use: cigarettes Smoking packs per day: 0.5 Smoking cigarettes per day: 10.0 Do you use any of these nicotine containing products: None Second hand tobacco smoke exposure: No How often do you have a drink containing alcohol: never AUDIT-C Alcohol total score: 0 Non-prescribed substance use: denies use service: No Exam Narrative: Exam Narrative: Constitutional: Appears well-developed and well-nourished. Alert. Conversant. Anxious and worried. Non toxic. HENT: Head: Atraumatic. No depressed skull fracture, Raccoon Eyes, Smith's sign, or hemotympanum. Face normal. TMs normal Nose: Dry blood in the right nares without any signs of active bleeding. Left nares normal. Septum normal. Small amount of dry blood in the posterior oropharynx. Mouth/Throat: Oral mucosa is clear and moist. no trismus. Pharynx normal. Tonsils symmetric. No tonsillar enlargement, erythema, or exudate. Eyes: Conjunctivae normal. EOM normal. Pupils equal, round, and reactive to light. No scleral icterus. Neck: Normal range of motion. Neck supple. No tracheal deviation present. Cardiovascular: Normal rate, regular rhythm. No gallop. No friction rub. No murmur heard. Symmetric radial artery pulses Pulmonary/Chest: Effort normal. No stridor. No respiratory distress. No wheezes. No rales. No rhonchi . No tenderness. Abdominal: Soft. Bowel sounds normal. No distension. No mass. No tenderness. No rebound. No guarding. Musculoskeletal: RUE: Normal range of motion. No tenderness. No deformity LUE: Normal range of motion. No tenderness. No deformity RLE: Normal range of motion. No edema. No tenderness. No deformity LLE: Normal range of motion. No edema. No tenderness. No deformity Lymph: No cervical adenopathy. Neurological: Alert and oriented to person, place, and time. Normal strength. CN II-VII intact. No sensory deficit. GCS eye subscore is 4. GCS verbal subscore is 5. GCS motor subscore is 6. Normal coordination . Gait steady in the hallway. Skin: Skin is warm and dry. No rash noted. No pallor. Normal capillary refill. Psychiatric: Patient says he does not want to nursing home. He is anxious and worried. He says he did take the med tablets because he thought if he overdosed he would not have to go to nursing home. He only took 3 tablets and they made him feel funny. He thinks they were meth, but he is not sure. Const: Vital Signs, click to edit/add: Vital Signs - 24 hr 11/02/23 15:07 Temperature 98.6 F Pulse Rate [Right Pulse Oximeter] 92 Respiratory Rate 20 Blood Pressure [Ri ght Upper Arm] 120/88 Pulse Oximetry 96 Oxygen Delivery Me thod Room Air Course Vital Signs Vital signs: Initial Vital Signs Temperature 98.6 F 11/02/23 15:07 Temperature Source Temporal Artery Scan 11/02/23 15:07 Pulse Rate 92 11/02/23 15:07 Respiratory Rate 20 11/02/23 15:07 Blood Pressure 120/88 11/02/23 15:07 Blood Pressure Mean 98 11/02/23 15:07 Blood Pressure Position Sitting 11/02/23 15:07 Pulse Oximetry 96 11/02/23 15:07 Oxygen Delivery Method Room Air 11/02/23 15:07 Vital Signs Temperature 98.6 F 11/02/23 15:07 Pulse Rate 92 11/02/23 15:07 Respiratory Rate 20 11/02/23 15:07 Blood Pressure 120/88 11/02/23 15:07 Pulse Oximetry 96 11/02/23 15:07 Oxygen Delivery Method Room Air 11/02/23 15:07 Temperature 98.6 F 11/02/23 15:07 Pulse Rate 92 11/02/23 15:07 Respiratory Rate 20 11/02/23 15:07 Blood Pressure 120/88 11/02/23 15:07 Pulse Oximetry 96 11/02/23 15:07 Oxygen Delivery Method Room Air 11/02/23 15:07 Medical Decision Making MDM Narrative Medical decision making narrative: 38-year-old male presenting to the ER today for nursing home clearance in custody of [employer]. He was apparently under arrest today when he through self to the floor and had an intentional breath-holding spell. It sounds like he may have had a pseudo-seizure as well. First responders did put in a nasal pharyngeal airway and with that he immediately woke up. There was no postictal phase. It sounds like this was not a true seizure. He does not have any significant head trauma. He did have some nose bleed after placement of the nasal airway that has now ceased. He is not anticoagulated. At this point there is no signs of any nasal fracture or other significant nasal trauma. Suspect that the epistaxis will be self-limited was triggered by the placement of the nasal airway. Would recommend treatment of recurrent epistaxis by direct pressure for 10 minutes and bleeding not controlled, return to the ER. Patient says he does not want to go to nursing home. At this point he is afebrile, hemodynamically stable. He is neurologically intact. At this point I do not think he needs head CT. No other focal deficits to suggest spinal cord injury or need for C-spine imaging. Patient does complain of fatigue, nasal congestion, and feeling unwell for a few days. With these symptoms consider possible viral illness or COVID. Discussed with the officer to have him in custody. There is a protocol in place for testing and screening for COVID at the nursing home and we do not need do COVID swab here in the ER. At this point I do not think he needs laboratory workup, other imaging here in the ER. He is medically clear to go in custody of the officers. Discharge Plan Discharge Clinical Impression: Epistaxis, Breath-holding spell, Methamphetamine abuse Patient Disposition: Home, Self-Care Condition: Stable Instructions: Nosebleed (ED) Additional Instructions: Please come back to the ER if you have any concerns especially worsening or severe headache, confusion, seizure activity. If you have more nosebleed, tried to apply direct pressure by pinching the front of your nose for 10 minutes with her fingers. If bleeding is not controlled after that, please see the medical provider at the nursing home or return to the ER right away. With reasonable clinical confidence, I believe this patient is clear to go in custody of law enforcement on 11/02/2023 at 3:49 p.m.. Prescriptions: No Action trazodone 50 mg tablet PO atenolol 25 mg tablet 25 mg PO DAILY buspirone 10 mg tablet 10 mg PO BID albuterol sulfate [Ventolin HFA] 90 mcg/actuation HFA aerosol inhaler 1 - 2 puff INHALATION Q4H PRN (Reason: dyspnea) aripiprazole 10 mg tablet 10 mg PO DAILY bupropion HCl 150 mg tablet extended release 24 hr 150 mg PO QAM magnesium citrate Solution 300 ml PO DAILY Qty: 592 0RF Fleet Enema 19-7 gram/118 mL enema 118 ml [place] DAILY PRN (Reason: constipation) 2 Days Qty: 230 0RF Follow Up/Referrals: ADA LANDIS DO [Primary Care Provider] - Stand Alone [facility]: [facility]
[2023-11-02] MEDS: ACETAMINOPHEN 500 MG TABLET 1000 MG PO (15:51)
--- OUTSIDE RECORDS SUMMARY | 2023-11-02 16:01 | XMS_ITS | Clinical Summary ---
Author Organization [facility] s & [facility] Address [place], [place] [address] Care Team Providers Care Extract Wringer Name Role Phone Clinic, [facility] Primary [facility] Pr ovider Allergies Active Allergy Reactions Criticality Noted Date Comments Bee Pollen Edema High 04/08/2008 Dust Mites *Unknown 10/29/2015 sneezing Medications Medication Sig Dispensed Refills Start Date End Date Status acetaminophen (TYLENOL EXTRA STRGTH) 500 mg tabletIndications :Tongue sore Take 2 Tablets (1,000 mg) by mouth every 6 hours if needed (for mouth pain). Max acetaminophen dose: 4000mg in 24 hrs. 40 Tablet 10/10/2020 Active EPINEPHrine (EPIPEN) 0.3 mg/0.3 mL auto-injectorIndi cations:Bee sting allergy IMJECT 0.3MG INTRAMUSCULARLY ONE TIME FOR ONE DOSE 2 Each 03/09/2022 Active albuterol HFA (PRO-AIR; VENTOLIN; PROVENTIL) 90 mcg/actuation inhalerIndication s:Seasonal allergies Inhale 1-2 Puffs by mouth every 4 hours if needed for Shortness Of Breath. 1 Each 1 03/09/2022 Active sildenafiL, pulm.hypertension , (REVATIO) 20 mg tabletIndications :Erectile dysfunction of organic origin Take 1-5 pills (start at lower dose and increase next time if needed) 30 mins prior to sexual intercourse 30 Tablet 1 03/11/2022 Active nicotine 14 mg/24 hr (NICODERM; HABITROL) 14 mg/24 hr patchIndications: Tobacco use disorder Apply 1 Patch on dry, clean, hairless skin once daily. 14 Patch 1 05/17/2022 Active neomycin-polymyxi n-hydrocortisone (CORTISPORIN OTIC) otic suspension 05/04/2022 Active atenoloL (TENORMIN) 25 mg tabletIndications :HTN (hypertension) Take 1 Tablet (25 mg) by mouth once daily. 30 Tablet 2 05/17/2022 Active losartan (COZAAR) 25 mg tabletIndications :HTN (hypertension) Take 1 Tablet (25 mg) by mouth once daily. 90 Tablet 3 05/17/2022 Active traZODone (DESYREL) 50 mg tabletIndications :Moderate episode of recurrent major depressive disorder (HC) Take 3 Tablets (150 mg) by mouth at bedtime. 90 Tablet 1 05/17/2022 Active buPROPion (WELLBUTRIN XL) 150 mg Extended-Release tabletIndications :Severe episode of recurrent major depressive disorder, without psychotic features (HC) Take 1 Tablet (150 mg) by mouth every morning. 90 Tablet 3 05/17/2022 Active semaglutide, weight loss, (Wegovy) 0.5 mg/0.5 mL penIndications:Cl ass 3 severe obesity due to excess calories with serious comorbidity and body mass index (BMI) of 50.0 to 59.9 in adult (HC) Inject 0.5 mg subcutaneous once weekly. 2 mL 11 06/10/2022 Active Active Problems Problem Noted Date Diagnosed Date Otitis externa 05/14/2022 05/14/2022 Severe episode of recurrent major depressive disorder, without psychotic features 03/09/2022 Generalized anxiety disorder 10/27/2016 Tobacco abuse 07/31/2010 Class 3 severe obesity due t o excess calories with body mass index (BMI) of 50.0 to 59.9 in adult 07/31/2010 Immunizations Name Administration Dates Next Due Influenza, IIV4 10/10/2020,11/19/2019 Td (Age >=7 Years) 04/19/2011 Tdap 08/16/2017 Family History Medical History Relation Name Comments Cancer Maternal Grandfather Lung Heart Disease Maternal Grandfather Diabetes Maternal Grandmother Hypertension Maternal Grandmother Relation Name Status Comments Brother Alive x2 Daughter Alive Father Alive Maternal Grandfather Maternal Grandmother Mother Alive Sister Alive x3 Social History Tobacco Use Types Packs/Day Years Used Date Smoking Tobacco: Every Day Cigarettes 0.5 21.7 Started: 02/13/2002 Smokeless Tobacco: Never Tobacco Cessation:Ready to Q uit: Yes; Counseling Given: Yes Comments:6 cigs per day Alcohol Use Standard Drinks/Week Comments No 0 (1 standard drink = 0.6 oz pur e alcohol) PHQ-2 Answer Date Recorded PHQ-2 TOTAL SCORE 6 03/11/2022 Social Connections Answer Date Recorded Frequency of Communication with Friends and Fami ly Not on file 09/22/2022 Financial Resource Strain Answer Date R ecorded Difficulty of Paying Living Expenses 2 09/14/2021 Difficulty of Paying Living Expenses 1 09/14/2021 Food Insecurity Answer Date Recorded Worried About Running Out of Food in the Last Ye ar 1 09/14/2021 Transportation Needs Answer Date Record ed Lack of Transportation (Medical) 2 09/14/2021 Housing Stability Answer Date Recorded Unable to Pay for Housing in the Last Year 2 09/14/2021 Sex and Gender Information Value Date Recorded Sex Assigned at Not on file Gender Identity Not on file Sexual Orientation Not on file Obstetrics History Last Filed Vital Signs Vital Sign Reading Time Taken Comments Blood Pressure 130/87 05/17/2022 1:49 PM CDT Pulse 101 05/17/2022 1:49 PM CDT Temperature 36.7 ??C (98.1 ??F) 02/12/2021 2:12 PM CS T Respiratory Rate 22 02/12/2021 2:12 PM REGIONAL RECRUITER Oxygen Saturation 94% 05/17/2022 1:49 PM CDT Inhaled Oxygen Concentration - - Weight 166.6 kg (367 lb 3.2 oz) 05/17/2022 1:49 PM CDT Height 167.6 cm (5' 6) 05/17/2022 1:49 PM CDT Body Mass Index 59.27 05/17/2022 1:49 PM CDT Plan of Treatment Health Maintenance Due Date Last Done Comments Pneumococcal series for age 6-64 (1 of 2 - PCV) 1989 Depression screening for age 12+ 03/15/2023 03/15/2022, 03/15/2022, 03/11/2022, Additional history exists BMI (ht and wt on same day) for age 18+ 05/18/2023 05/17/2022, 09/14/2021, 02/12/2021, Additional history exists COVID-19 vaccine series (2023-25 season) 2023 Influenza for age 9-49 10/09/2023 10/10/2020, 2019 Lipids for age 35-44 03/11/2027 03/11/2022, 08/01/19 11 Tetanus booster 08/17/2027 08/16/2017, 04/19/2011 Tdap Completed 08/16/2017 HIV for age 15-65 Completed 03/11/2022 Hepatitis C screening for ag e 18-79 Completed 03/11/2022 Procedures Procedure Name Priority Date/Time Associated Diagnosis Comments LC HIV-1/O/2, 4TH GENERATION Routine 03/11/2022 2:30 PM REGIONAL RECRUITER Screening for HIV (human immunodeficiency virus) LC HCV ANTIBODY RFX TO QUANT PCR Routine 03/11/2022 2:30 PM REGIONAL RECRUITER Need for hepatitis C screening test LC LIPID PANEL AND CHOL/HDL RATIO Routine 03/11/2022 2:30 PM REGIONAL RECRUITER Lipid screening from Last 3 Months or Most Recently Relevant to Health Maintenance Results * (ABNORMAL) LC LIPID PANEL AND CHOL/HDL RATIO (03/11/2022 2:30 PM REGIONAL RECRUITER) Cholesterol, Total 218(H) 100 - 199 mg/dL 03/13/2022 11:08 AM [facility] Triglycerides 151(H) 0 - 149 mg/dL 03/13/2022 11:[address] [facility] ([facility]) HDL Cholesterol 53 >39 mg/dL 11:[address] [facility] ([facility]) VLDL Cholesterol Bulmaro 27 5 - 40 mg/dL 03/13/2022 11:[address] [facility] ([facility]) LDL Chol Calc (NIH) 138(H) 0 - 99 mg/dL 03/13/2022 11:[address] [facility] ([facility]) T. Chol/HDL Ratio 4.1 0.0 - 5.0 ratio 03/13/2022 11:08 AM REGIONAL RECRUITER [facility] Comment: ?T. Chol/HDL Ratio ?Men ??Women ?1/2 Avg.Risk ??3.4 ?3.3 ?Avg.Risk ??5.0 ?4.4 ? 2X Avg.Risk ??9.6 ?7.1 ? 3X Avg.Risk 23.4 ?? 11.0 Blood BLOOD SPECIMEN / Unknown Venipuncture / Unknown 03/11/2022 2:30 PM REGIONAL RECRUITER 03/11/2022 2:35 PM REGIONAL RECRUITER Narrative [facility] - 03/13/2022 11:08 AM REGIONAL RECRUITER Performed at: ??01 - [facility] [address] [facility], [place], [place] ??[id number] Sheeter Operator: George Mooney MD, Phone: ??[phone] Patricia Ball DO SEND OUTS [facility] ([facility]) [facility] [place] [address], * LC HCV ANTIBODY RFX TO QUANT PCR (03/11/2022 2:30 PM REGIONAL RECRUITER) Pathologist [facility] HCV Ab <0.1 0.0 - 0.9 s/co ratio 03/14/2022 10:06 PM REGIONAL RECRUITER [facility] ([facility]) Blood BLOOD SPECIMEN / Unknown Venipuncture / Unknown 03/11/2022 2:30 PM REGIONAL RECRUITER 03/11/2022 2:35 PM REGIONAL RECRUITER Narrative [facility] ([facility]ET) - 03/14/2022 10:06 PM REGIONAL RECRUITER Performed at: ??[address] ??[id number] Sheeter Operator: George Mooney MD, Phone: ??[phone] Patricia Ball DO LABORATORY Performing Organization Address [facility] de Phone Number [facility] ([facility]) [address] [place] [address] * HIV-1/O/2, 4TH GENERATION (03/11/2022 2:30 PM REGIONAL RECRUITER) Pathologist [facility] HIV Scr 4th Gen Non Reactive Non Reactive 03/13/2022 11:08 AM REGIONAL RECRUITER [facility] ([facility]) Comment: HIV Negative HIV-1/HIV-2 antibodies and HIV-1 p24 antigen were NOT detected. There is no laboratory evidence of HIV infection. Blood BLOOD SPECIMEN / Unknown Venipuncture / Unknown 03/11/2022 2:30 PM REGIONAL RECRUITER 03/11/2022 2:35 PM REGIONAL RECRUITER [facility]OTERIC TESTING (CET) - 03/13/2022 11:08 AM REGIONAL RECRUITER Performed at: ??[address] ??[id number] Sheeter Operator: George Mooney MD, Phone: ??[phone] Patricia Ball DO LABORATORY Performing Organization Address [facility] Co de Phone Number [facility] (CET) [address] [place] [address], from Last 3 Months or Most Recently Relevant to Health Maintenance Care Teams Extract Wringer Relationship Specialty Start Date End Date Clinic, [facility] [address] [place] [address] PCP - General 09/19/23
== END 2023-11-02 15:59 | disposition home or self-care (01) ==
LOC: ED 15:59
PROVIDERS: Emergency Provider Emergency Medicine; PCP Student in an Organized Health Care Education/Training Program
DX: R06.89 Other abnormalities of breathing (principal); R04.0 Epistaxis; F15.10 Other stimulant abuse, uncomplicated; Z65.3 Problems related to other legal circumstances
CPT/HCPCS: 99282; A9270

== ENCOUNTER 2024-07-25 23:08 | Emergency (ER) | payer OTHER, SELFPAY ==
--- OUTSIDE RECORDS SUMMARY | 2024-07-25 23:09 | XMS_ITS | Clinical Summary ---
Author Organization [facility] Address Formerly [facility] [place] [address] Care Team Providers Care Wood Boring Machine Operator Name Role Phone Patricia Ball DO Primary Care Provider [phone] Allergies Active Allergy Reactions Criticality Noted Date Comments Bee Pollen Edema High 04/08/2008 Dust Mites *Unknown 10/29/2015 sneezing Medications acetaminophen (TYLENOL EXTRA STRGTH) 500 mg tabletIndication s:Tongue sore Take 2 Tablets (1,000 mg) by mouth every 6 hours if needed (for mouth pain). Max acetaminophen dose: 4000mg in 24 hrs. 40 Tablet 10/11/19 21 Active losartan (COZAAR) 25 mg tabletIndication s:HTN (hypertension) Take 1 Tablet (25 mg) by mouth once daily. 90 Tablet 3 01/13/20 24 Active buPROPion (WELLBUTRIN XL) 150 mg Extended-Release tabletIndication s:Severe episode of recurrent major depressive disorder, without psychotic features (HC) Take 1 Tablet (150 mg) by mouth once daily in the morning. 90 Tablet 3 01/13/20 24 Active atenoloL (TENORMIN) 25 mg tabletIndication s:HTN (hypertension) Take 1 Tablet (25 mg) by mouth once daily. 30 Tablet 2 01/13/20 24 Active albuterol HFA (PRO-AIR; VENTOLIN; PROVENTIL) 90 mcg/actuation inhalerIndicatio ns:Seasonal allergies Inhale 1-2 Puffs by mouth every 4 hours if needed for Shortness Of Breath. 1 Each 11 01/13/20 24 Active EPINEPHrine (EPIPEN) 0.3 mg/0.3 mL auto-injectorInd ications:Bee sting allergy IMJECT 0.3MG INTRAMUSCULARLY ONE TIME FOR ONE DOSE 2 Each 01/13/20 24 Active semaglutide (Wegovy) 0.25 mg/0.5 mL subcutaneous penIndications:C lass 3 severe obesity due to excess calories with serious comorbidity and body mass index (BMI) of 50.0 to 59.9 in adult (HC) Inject 0.25 mg subcutaneous once weekly. 2 mL 01/13/20 24 Active semaglutide, weight loss, (Wegovy) 0.5 mg/0.5 mL subcutaneous penIndications:C lass 3 severe obesity due to excess calories with serious comorbidity and body mass index (BMI) of 50.0 to 59.9 in adult (HC) Inject 0.5 mg subcutaneous once weekly. 2 mL 01/13/20 24 Active semaglutide, weight loss, (Wegovy) 1 mg/0.5 mL subcutaneous penIndications:C lass 3 severe obesity due to excess calories with serious comorbidity and body mass index (BMI) of 50.0 to 59.9 in adult (HC) Inject 1 mg subcutaneous once weekly. 2 mL 01/13/20 24 Active semaglutide, weight loss, (Wegovy) 1.7 mg/0.75 mL subcutaneous penIndications:C lass 3 severe obesity due to excess calories with serious comorbidity and body mass index (BMI) of 50.0 to 59.9 in adult (HC) Inject 1.7 mg subcutaneous once weekly. 3 mL 01/13/20 24 Active semaglutide, weight loss, (Wegovy) 2.4 mg/0.75 mL subcutaneous penIndications:C lass 3 severe obesity due to excess calories with serious comorbidity and body mass index (BMI) of 50.0 to 59.9 in adult (HC) Inject 2.4 mg subcutaneous once weekly. 3 mL 8 01/13/20 24 Active polyethylene glycoL (MIRALAX) 17 gram/scoop powderIndication s:Chronic constipation Mix 1 scoop (17 g) in liquid then take by mouth once daily. 510 g 3 01/13/20 24 Active traZODone (DESYREL) 50 mg tabletIndication s:Moderate episode of recurrent major depressive disorder (HC) Take 2 Tablets (100 mg) by mouth at bedtime. 180 Tablet 3 01/13/20 Active sildenafiL, pulm.hypertensio n, (REVATIO) 20 mg tabletIndication s:Erectile dysfunction of organic origin Take 1-5 pills (start at lower dose and increase next time if needed) 30 mins prior to sexual intercourse 30 Tablet 1 01/13/20 24 Active Active Problems Problem Noted Date Diagnosed Date Otitis externa 05/14/2022 05/14/2022 Severe episode of recurrent major depressive disorder, without psychotic features 03/09/2022 Generalized anxiety disorder 10/27/2016 Tobacco abuse 07/31/2010 Class 3 severe obesity due t o excess calories with body mass index (BMI) of 50.0 to 59.9 in adult 07/31/2010 Encounters Date Type Department Care Team Description 06/15/2024 Telephone [facility] [address] [place] [address] Patricia Ball, Appointment (Due for f/u / BP management ) from Last 3 Months Immunizations Immunization Administration Dates Next Due Influenza, IIV4 10/10/2020,11/19/2019 [...] Date Smoking Tobacco: Every Day Cigarettes 0.5 22.4 Started: 02/13/2002 Smokeless Tobacco: Never Tobacco Cessation:Ready to Q uit: Yes; Counseling Given: Yes Comments:6 cigs per day Alcohol Use Standard Drinks/Week Comments No 0 (1 standard drink = 0.6 oz pur e alcohol) PHQ-2 Answer Date Recorded PHQ-2 TOTAL SCORE 4 01/13/2024 Social Connections Answer Date Recorded Do you often feel lonely or isolated from those around you? 4 01/13/2024 Financial Resource Strain Answer Date R ecorded Difficulty of Paying Living Expenses Not on file 01/13/2024 Difficulty of Paying Living Expenses 3 01/13/2024 Food Insecurity Answer Date Recorded Do you worry your food will run out before you are able to buy more? 2 01/13/2024 Transportation Needs Answer Date Record ed Does lack of transportation keep you from medica l appointments? 2 01/13/2024 Does lack of transportation keep you from work, meetings or getting things that you need? 2 01/13/2024 Housing Stability Answer Date Recorded What is your housing situation today? 3 01/13/2024 Utilities Answer Date Recorded Do you have trouble paying f or utilities (for example, heat, electricity, water, phone)? 2 01/13/2024 Sex and Gender Information Value Date Recorded Sex Assigned at Not on file Legal Sex Male 6:39 AM SHEEP KILLER Gender Identity Not on file Sexual Orientation Not on file Obstetrics History Last Filed Vital Signs Vital Sign Reading Time Taken Comments Blood Pressure 159/97 01/13/2024 2:31 PM SHEEP KILLER Pulse 101 01/13/2024 2:31 PM SHEEP KILLER Temperature 36.7 C (98.1 F) 02/12/2021 2:12 PM SHEEP KILLER Respiratory Rate 22 02/12/2021 2:12 PM SHEEP KILLER Oxygen Saturation 96% 01/13/2024 2:31 PM SHEEP KILLER Inhaled Oxygen Concentration - - Weight 145.3 kg (320 lb 4.8 oz) 01/13/2024 2:31 PM SHEEP KILLER Height 170 cm (5' 6.93) 01/13/2024 2:31 PM SHEEP KILLER Body Mass Index 50.27 01/13/2024 2:31 PM SHEEP KILLER Plan of Treatment Health Maintenance Due Date Last Done Comments Hepatitis B series for 19+ ( 1 of 3 - 19+ 3-dose series) 2002 Pneumococcal series for age 6-49 (1 of 2 - PCV) 2002 COVID-19 vaccine series ( - season) 2023 Influenza Vaccine (Season Ended) 2024 10/11/19 21, 11/19/2019 BMI (ht and wt on same day) for age 18+ 01/12/2025 01/13/2024, 05/17/2022, 09/14/2021, Additional history exists Depression screening for age 12+ 01/15/2025 01/16/2024, 01/16/2024, 01/16/2024, Additional history exists Tetanus booster 08/17/2027 08/16/2017, 04/19/2011 Lipids for age 35-44 01/12/2029 01/13/2024, 03/11/2022, 07/31/2010 Tdap Completed 08/16/2017 HIV for age 15-65 Completed 03/11/2022 Hepatitis C screening for ag e 18-79 Completed 03/11/2022 Procedures Procedure Name Priority Date/Time Associated Diagnosis Comments LIPID PANEL W REFLEX MEASURED LDL Routine 01/13/2024 3:03 PM SHEEP KILLER Lipid screening LC HIV-1/O/2, 4TH GENERATION Routine 03/11/2022 2:30 PM SHEEP KILLER Screening for HIV (human immunodeficiency virus) LC HCV ANTIBODY RFX TO QUANT PCR Routine 03/11/2022 2:30 PM SHEEP KILLER Need for hepatitis C screening test from Last 3 Months or Most Recently Relevant to Health Maintenance Results * LIPID PANEL W REFLEX MEASURED LDL (01/13/2024 3:03 PM SHEEP KILLER) Pathologist [facility] CHOLESTEROL, TOTAL 165 <200 mg/dL [facility] HDL CHOLESTEROL 53 > OR = 40 mg/dL [facility] TRIGLYCERIDES 138 <150 mg/dL [facility] LDL-CHOLESTEROL 88 mg/dL (calc) [facility] Comment: Reference range: <100 Desirable range <100 mg/dL for primary prevention; <70 mg/dL for patients with CHD or diabetic patients with > or = 2 CHD risk factors. LDL-C is now calculated using the Joel-Abdias calculation, which is a validated novel method providing better accuracy than the Friedewald equation in the estimation of LDL-C. Joel SS et al. MIGUEL ANGEL. 2013;310(19): 5507-0917 (http://education.[employer]/faq/FFW142) CHOL/HDLC RATIO 3.1 <5.0 (calc) [facility] NON HDL CHOLESTEROL 112 <130 mg/dL (calc) [facility] Comment: For patients with diabetes plus 1 major ASCVD risk factor, treating to a non-HDL-C goal of <100 mg/dL (LDL-C of <70 mg/dL) is considered a therapeutic option. Blood BLOOD SPECIMEN / Unknown 01/13/2024 3:03 PM SHEEP KILLER 01/13/2024 3:03 PM SHEEP KILLER Adei Ronniqra DO CHEMISTRY Final Result Performing Organization Address City/[facility]/ZIP Co de Phone Number [employer] [facility] [address] [place] [address], [facility] [address] [place] [address] * LC HCV ANTIBODY RFX TO QUANT PCR (03/11/2022 2:30 PM SHEEP KILLER) [facility] HCV Ab <0.1 0.0 - 0.9 s/co ratio 03/14/2022 10:06 PM SHEEP KILLER [facility] ([facility]ET) Blood BLOOD SPECIMEN / Unknown Venipuncture / Unknown 03/11/2022 2:30 PM SHEEP KILLER 03/11/2022 2:35 PM SHEEP KILLER Narrative [facility] ([facility]) - 03/14/2022 10:06 PM SHEEP KILLER Performed at: [address] [place] [id number] Title Attorney: George Mooney MD, Phone: [phone] Adeosmel Whitaker DO LABORATORY Final Result Performing Organization Address City/[facility]/ZIP Co de Phone Number [facility] ([facility]) [facility] [place] [address], [place] * LC HIV-1/O/2, 4TH GENERATION (03/11/2022 2:30 PM SHEEP KILLER) [facility] HIV Scr 4th Gen Non Reactive Non Reactive 03/13/2022 11:[address] [facility] ([facility]) Comment: HIV Negative HIV-1/HIV-2 antibodies and HIV-1 p24 antigen were NOT detected. There is no laboratory evidence of HIV infection. Blood BLOOD SPECIMEN / Unknown Venipuncture / Unknown 03/11/2022 2:30 PM SHEEP KILLER 03/11/2022 2:35 PM SHEEP KILLER [facility]ative [facility] - 03/13/2022 11:08 AM SHEEP KILLER Performed at: 01 - [facility] [id number] [place], [place] [id number] Title Attorney: George Mooney MD, Phone: [phone] us Patricia Ball DO LABORATORY Final Result [facility] ([facility]) [facility] [place] [address], from Last 3 Months or Most Recently Relevant to Health Maintenance Insurance MEDICAID [address] [place] [address] [employer] [address] [place] [address] [place] [address] [place] [address] Care Teams Wood Boring Machine Operator Relationship Specialty Start Date End Date Patricia Ball [place] [address] PCP - General Family Practice 02/14/24
[2024-07-25 23:23] VITALS: BP 138/88; PULSE 111; RESP 20; TEMP 37.1; O2SAT 92; BMI 53.4
--- NOTE | 2024-07-25 23:33 | ED.GENADULT ---
HPI - General Adult General Time Seen by Provider: 23:33 Date Seen: 07/25/24 Chief complaint: Extremity Pain/Injury, Lower Stated complaint: foot pain, swelling Time Seen by Provider: 07/25/24 23:33 Source: patient Mode of arrival: ambulatory Limitations: no limitations History of Present Illness HPI narrative: 39-year-old male who presents today with bilateral foot swelling and redness. No known injury exposure. Pain is constant, worse with walking. Has not taken any medication for this. No chest pain or shortness of breath, no fevers or chills. Thinks he might have poison tal on his legs but this is not related to the redness and swelling in his feet. Related Data Home Medications ?Medication ?Instructions ?Recorded ?Confirmed aripiprazole 10 mg tablet 10 mg PO DAILY 09/04/22 12/29/23 atenolol 25 mg tablet 25 mg PO DAILY 09/04/22 12/29/23 bupropion HCl 150 mg 24 hr tablet, 150 mg PO QAM 09/04/22 12/29/23 extended release buspirone 10 mg tablet 10 mg PO BID 09/04/22 12/29/23 trazodone 50 mg tablet mg PO 09/04/22 12/29/23 Previous Rx's ?Medication ?Instructions ?Recorded magnesium citrate 300 ml PO DAILY #592 mL 09/04/22 sodium phosphates 19 gram-7 118 ml OK DAILY PRN constipation 2 09/04/22 gram/118 mL enema (Fleet Enema) days #230 mL azithromycin 250 mg tablet See Rx Instructions PO .COMPLEX #6 12/29/23 tabs budesonide-formoterol HFA 160 2 puff inhalation BID #10.2 grams 12/29/23 mcg-4.5 mcg/actuation aerosol inhaler (Symbicort) guaifenesin 1,200 mg tablet, 1,200 mg PO BID #60 tabs 12/29/23 extended release 12 hr Allergies Allergy/AdvReac Type Severity Reaction Status Date / Time No Known Drug Allergies Allergy Verified 12/29/23 10:50 PFSH [facility] Social History Smoking Status: Current every day smoker What tobacco products do you use: cigarettes Smoking packs per day: 0.5 Smoking cigarettes per day: 10.0 Do you use any of these nicotine containing products: None Second hand tobacco smoke exposure: No How often do you have a drink containing alcohol: never AUDIT-C Alcohol total score: 0 Non-prescribed substance use: denies use service: No Exam Narrative: Exam Narrative: General: Well-developed and well-nourished, no acute distress Head: Atraumatic and normocephalic Eyes: Pupils are equal reactive, extraocular motions intact, conjunctiva clear ENT: External nose and ears are normal, posterior pharynx without erythema or exudate Neck: No midline cervical tenderness, full spontaneous range of motion the neck, trachea midline, no adenopathy Heart: Regular rate and rhythm no murmurs or thrills Lungs: Clear to auscultation bilaterally without wheezes or crackles Abdomen: Soft, nontender, nondistended with active bowel sounds Musculoskeletal: No tenderness, deformity, or edema Neurologic: Awake, alert, and oriented x3, no gross focal neurologic deficits, cranial nerves intact as tested Psych: Mood and affect are appropriate Skin: Mild erythema of the tops that the bilaterally, bottoms of the feet are caked with dirt. Some excoriations of the anterior lower legs bilaterally. No edema past the ankle. Const: Vital Signs, click to edit/add: Vital Signs - 24 hr 07/25/24 23:23 Temperature 98.7 F Pulse Rate [Pulse Oximeter] 111 H Respiratory Rate 20 Blood Pressure [Ri ght Upper Arm] 138/88 Pulse Oximetry 92 Oxygen Delivery Me thod Room Air Course Course ED Course: Reviewed prior emergency department visit from October 2023 when patient was seen for a breath-holding spell related to being taken into police custody, also at that time admitted methamphetamine abuse. Patient presents today with swelling and pain of the bilateral feet. On exam, patient is tachycardic but otherwise vital is stable. He has erythema and swelling on the tops the feet bilaterally. Excoriations lower legs. Bilateral knee atrial no calf pain, DVT is unlikely. This could be related to a cellulitis but again is bilateral which is a little unusual. Consider peripheral vascular disease as well. No joint effusion or tenderness over the MTP joints to suggest crystal arthropathy or septic arthritis. Labs ordered, anticipate discharge. Reevaluation(s) Time of Reevaluation #1: 00:36 Reevaluation #1: Labs and pill interpreted by me with normal CBC, mild hypokalemia, also slightly elevated glucose an AST. No definite etiology for patient's swollen feet found. Patient was started on prednisone to help with his itchy legs, patient should elevate feet in follow-up with primary care. Vital Signs Vital signs: Initial Vital Signs Temperature 98.7 F 07/25/24 23:23 Temperature Source Oral 07/25/24 23:23 Pulse Rate 111 H 07/25/24 23:23 Respiratory Rate 07/25/24 23:23 Blood Pressure 138/88 07/25/24 23:23 Blood Pressure Mean 104 07/25/24 23:23 Blood Pressure Position Sitting 07/25/24 23:23 Pulse Oximetry 92 07/25/24 23:23 Oxygen Delivery Method Room Air 07/25/24 23:23 Vital Signs Temperature 98.7 F 07/25/24 23:23 Pulse Rate 111 H 07/25/24 23:23 Respiratory Rate 20 07/25/24 23:23 Blood Pressure 138/88 07/25/24 23:23 Pulse Oximetry 92 07/25/24 23:23 Oxygen Delivery Method Room Air 07/25/24 23:23 Temperature 98.7 F 07/25/24 23:23 Pulse Rate 111 H 07/25/24 23:23 Respiratory Rate 20 07/25/24 23:23 Blood Pressure 138/88 07/25/24 23:23 Pulse Oximetry 92 07/25/24 23:23 Oxygen Delivery Method Room Air 07/25/24 23:23 Medical Decision Making Lab Data Labs: Lab Results 07/26/24 Range/Units 00:05 WBC 7.05 (4.50-11.00) K/uL RBC 4.92 (4.30-5.90) m/uL Hgb 14.3 (13.5-17.5) gm/dL Hct 43.5 (37.0-53.0) % MCV 88 (80-100) fL MCH 29 (26-34) pg MCHC 33 (32-36) gm/dL RDW Coeff of Sarahi 13.0 (11.5-15.5) % Plt Count 271 (140-440) K/uL Neut % (Auto) 55.3 (42.0-72.0) % Lymph % (Auto) 28.8 (20-44) % [place] % (Auto) 9.8 (0.0-11.0) % Eos % (Auto) 5.1 (0.0-7.0) % Baso % (Auto) 0.4 (0.0-3.0) % Neut # (Auto) 3.90 (1.7-7.0) K/uL Lymph # (Auto) 2.03 (0.90-2.90) K/uL [place] # (Auto) 0.70 (0.00-0.90) K/UL Eos # (Auto) 0.36 (0.00-0.50) K/uL Baso # (Auto) 0.03 (0.00-0.30) K/uL Abs Immat Gran (auto) 0.04 (0.00-0.30) K/uL Imm/Tot Granulo (auto) 0.6 % Sodium 143 (135-149) mmol/L Potassium 3.2 L (3.6-5.1) mmol/L Chloride 107 (96-114) mmol/L Carbon Dioxide 27 (20-32) mmol/L Anion Gap 9 (7-15) mEq/L BUN 16 (5-24) mg/dL Creatinine 1.1 (0.5-1.5) mg/dL Estimated Creat Clear 79.75 Estimated GFR 86 ml/min Glucose 137 H (60-115) mg/dL Calcium 8.8 (8.4-10.6) mg/dL Total Bilirubin 1.0 (0.1-1.5) mg/dL Direct Bilirubin 0.1 (0.0-0.5) mg/dL AST 36 H (12-35) U/L ALT 34 (4-50) U/L Alkaline Phosphatase 69 (40-150) U/L Total Protein 6.8 (6.0-8.3) g/dL Albumin 4.1 (3.3-5.0) g/dL Discharge Plan Discharge Clinical Impression: Bilateral swelling of feet Patient Disposition: Home, Self-Care Condition: Stable Instructions: Edema (ED), Dermatitis (ED) Additional Instructions: Keep feet elevated as able Take prednisone as prescribed Follow-up with your primary care provider in 7-10 days Activity Level: Activity as Tolerated Discharge Diet: Regular Prescriptions: No Action budesonide-formoterol [Symbicort] 160-4.5 mcg/actuation HFA aerosol inhaler 2 puff inhalation BID Qty: 10.2 0RF Rx Instructions: OK to use every four hours between twice daily administration for management of symptoms. Be sure to swish mouth with water and spit following each administration to prevent thrush. azithromycin 250 mg tablet See Rx Instructions PO .COMPLEX Qty: 6 0RF Rx Instructions: For 250 mg dose pack: take 500 mg today (day 1), then 250 mg for 4 days (days 2-5) PO guaifenesin 1,200 mg tablet extended release 12hr 1,200 mg PO BID Qty: 60 0RF trazodone 50 mg tablet PO atenolol 25 mg tablet 25 mg PO DAILY buspirone 10 mg tablet 10 mg PO BID aripiprazole 10 mg tablet 10 mg PO DAILY bupropion HCl 150 mg tablet extended release 24 hr 150 mg PO QAM magnesium citrate Solution 300 ml PO DAILY Qty: 592 0RF Fleet Enema 19-7 gram/118 mL enema 118 ml OK DAILY PRN (Reason: constipation) 2 Days Qty: 230 0RF Follow Up/Referrals: ADA LANDIS DO [Primary Care Provider, Family Practice] Stand Alone Forms: Newsrepsth Info Instructions
[2024-07-26 00:12] LABS: Basophils Absolute Auto 0.03 K/uL (0.00-0.30); Basophils Percent Auto 0.4 % (0.0-3.0); Eosinophils Absolute Auto 0.36 K/uL (0.00-0.50); Eosinophils Percent Auto 5.1 % (0.0-7.0); Hematocrit 43.5 % (37.0-53.0); Hemoglobin* 14.3 gm/dL (13.5-17.5); Immature Granulocytes Abs Auto 0.04 K/uL (0.00-0.30); Immature Granulocytes Pct Auto 0.6 %; Lymphocytes Absolute Auto 2.03 K/uL (0.90-2.90); Lymphocytes Percent Auto 28.8 % (20-44); Mean Corpuscular HGB Conc 33 gm/dL (32-36); Mean Corpuscular Hemoglobin 29 pg (26-34); Mean Corpuscular Volume 88 fL (80-100); Monocytes Percent Auto 9.8 % (0.0-11.0); Neutrophils Percent Auto 55.3 % (42.0-72.0); Platelet Count* 271 K/uL (140-440); Red Blood Count 4.92 m/uL (4.30-5.90); White Blood Count* 7.05 K/uL (4.50-11.00)
[2024-07-26 00:17] LABS: Slide Review Reflex No
[2024-07-26 00:27] LABS: Albumin* 4.1 g/dL (3.3-5.0); Chloride* 107 mmol/L (96-114); Potassium* 3.2 mmol/L (3.6-5.1); Sodium* 143 mmol/L (135-149)
[2024-07-26 00:30] LABS: Alanine Aminotransferase* 34 U/L (4-50); Alkaline Phosphatase* 69 U/L (40-150); Anion Gap 9 mEq/L (7-15); Aspartate Amino Transferase* 36 U/L (12-35); Bilirubin Direct* 0.1 mg/dL (0.0-0.5); Blood Urea Nitrogen* 16 mg/dL (5-24); Carbon Dioxide* 27 mmol/L (20-32); Creatinine* 1.1 mg/dL (0.5-1.5); Est. Creatinine Clearance* 79.75; Estimated Glomerular Filt Rate 86 ml/min; Total Protein* 6.8 g/dL (6.0-8.3)
[2024-07-26 00:31] LABS: Calcium* 8.8 mg/dL (8.4-10.6); Glucose* 137 mg/dL (60-115)
== END 2024-07-26 00:50 | disposition home or self-care (01) ==
PROVIDERS: Emergency Provider Family Medicine; PCP Student in an Organized Health Care Education/Training Program
DX: R22.43 Localized swelling, mass and lump, lower limb, bilateral (principal)
CPT/HCPCS: 36415; 80048; 80076; 85025; 99283; 99284

== ENCOUNTER 2024-08-12 10:35 | Outpatient (CLI) | payer OTHER, SELFPAY | END 2024-08-12 10:36 | disposition home or self-care (01) | LOC: AMB 08-13 16:30 | PROVIDERS: PCP Student in an Organized Health Care Education/Training Program; Visit Provider Student in an Organized Health Care Education/Training Program | DX: R07.89 Other chest pain (principal) | CPT/HCPCS: A0425; A0427 ==

== ENCOUNTER 2024-08-12 11:12 | Emergency (ER) | payer OTHER, SELFPAY ==
[2024-08-12] VITALS (17 sets, daily range): BP systolic 90–134; BP diastolic 62–92; PULSE 72–94; RESP 10–38; TEMP 36.4; O2SAT 93–100
--- OUTSIDE RECORDS SUMMARY | 2024-08-12 11:14 | XMS_ITS | Clinical Summary ---
Author Organization [facility] Address [facility] [place] [address] Care Team Providers Care Building Coordinator Name Role Phone Patricia Ball DO Primary Care Provider Allergies Active Allergy Reactions Criticality Noted Date [...] to sexual intercourse 30 Tablet 1 01/13/20 Active Active Problems Problem Noted Date Diagnosed Date Otitis externa 05/14/2022 05/14/2022 Severe episode of recurrent major depressive disorder, without psychotic features 03/09/2022 Generalized anxiety disorder 10/27/2016 Tobacco abuse 07/31/2010 Class 3 severe obesity due t o excess calories with body mass index (BMI) of 50.0 to 59.9 in adult 07/31/2010 Encounters Date Type Department Care Team Description 08/08/2024 Telephone [facility] [address] [place] [address] Patricia Ball DO Form (request for medical opinion) 06/15/2024 Telephone [facility] [address] [place] [address] Patricia Ball DO Appointment (Due for f/u / BP management [...] Date Smoking Tobacco: Every Day Cigarettes 0.5 22.5 Started: 02/13/2002 Smokeless Tobacco: Never Tobacco Cessation:Ready [...] on file Legal Sex Male 6:39 AM [employer] Gender Identity Not on file Sexual Orientation Not on file Obstetrics History Last Filed Vital Signs Vital Sign Reading Time Taken Comments Blood Pressure 159/97 01/13/2024 2:31 PM CHINESE IN[employer]CTOR Pulse 101 01/13/2024 2:31 PM [employer]INESE IN[employer] Temperature 36.7 C (98.1 F) 02/12/2021 2:12 PM [employer]INESE IN[employer]CTOR Respiratory Rate 22 02/12/2021 2:12 PM CHINESE IN[employer]CTOR Oxygen Saturation 96% 01/13/2024 2:31 PM CHINESE INSTRUCTOR Inhaled Oxygen Concentration - - Weight 145.3 kg (320 lb 4.8 oz) 01/13/2024 2:31 PM CHINESE INSTRUCTOR Height 170 cm (5' 6.93) 01/13/2024 2:31 PM CHINESE IN[employer]CTOR Body Mass Index 50.27 01/13/2024 2:31 PM CHINESE INSTRUCTOR Plan of Treatment Health Maintenance Due Date Last Done Comments Hepatitis B series for 19+ ( 1 of 3 - 19+ 3-dose series) 2002 Pneumococcal series for age 6-49 (1 of 2 - PCV) 2002 COVID-19 vaccine series ( - season) 2023 Influenza Vaccine (#1) 2024 10/10/2020, 2019 BMI (ht and wt on same day) for age 18+ 01/12/2025 01/13/2024, 05/17/2022, 09/14/2021, Additional history exists Depression screening for age 12+ 01/15/2025 01/16/2024, 01/16/2024, 01/16/2024, Additional history exists Tetanus booster 08/17/2027 08/16/2017, 04/19/2011 Lipids for age 35-44 01/12/2029 01/13/2024, 03/11/2022, 07/31/2010 HIV for age 15-65 Completed 03/11/2022 Hepatitis C screening for ag e 18-79 Completed 03/11/2022 Procedures Procedure Name Priority Date/Time Associated Diagnosis Comments LIPID PANEL W REFLEX MEASURED LDL Routine 01/13/2024 3:03 PM CHINESE IN[employer]CTOR Lipid screening LC HIV-1/O/2, 4TH GENERATION Routine 03/11/2022 2:30 PM CHINESE IN[employer]CTOR Screening for HIV (human immunodeficiency virus) LC HCV ANTIBODY RFX TO QUANT PCR Routine 03/11/2022 2:30 PM CHINESE INSTRUCTOR Need for hepatitis C screening test from Last 3 Months or Most Recently Relevant to Health Maintenance Results * LIPID PANEL W REFLEX MEASURED LDL (01/13/2024 3:03 PM CHINESE INSTRUCTOR) CHOLESTEROL, TOTAL 165 <200 mg/dL [facility] HDL CHOLESTEROL 53 > OR = 40 mg/dL [facility] TRIGLYCERIDES 138 <150 mg/dL [facility] LDL-CHOLESTEROL 88 mg/dL (calc) [facility] Comment: Reference range: <100 Desirable range <100 mg/dL for primary prevention; <70 mg/dL for patients with CHD or diabetic patients with > or = 2 CHD risk factors. LDL-C is now calculated using the Joel-Abdias calculation, which is a validated novel method providing better accuracy than the Friedewald equation in the estimation of LDL-C. Joel LE et al. MIGUEL ANGEL. 2013;310(19): 8570-7173 (http://education.Lumus/faq/YRD149) CHOL/HDLC RATIO 3.1 <5.0 (calc) [facility] NON HDL CHOLESTEROL 112 <130 mg/dL (calc) [facility] Comment: For patients with diabetes plus 1 major ASCVD risk factor, treating to a non-HDL-C goal of <100 mg/dL (LDL-C of <70 mg/dL) is considered a therapeutic option. Blood BLOOD SPECIMEN / Unknown 01/13/2024 3:03 PM CHINESE INSTRUCTOR 01/13/2024 3:03 PM CHINESE INSTRUCTOR Adei Quinn DO CHEMISTRY Final Result [facility] [address] [place] [address], [facility] [address] [place] [address] * LC HCV ANTIBODY RFX TO QUANT PCR (03/11/2022 2:30 PM CHINESE INSTRUCTOR) Pathologist [facility] HCV Ab <0.1 0.0 - 0.9 s/co ratio 03/14/2022 10:06 PM CHINESE INSTRUCTOR [facility] Blood BLOOD SPECIMEN / Unknown Venipuncture / Unknown 03/11/2022 2:30 PM CHINESE INSTRUCTOR 03/11/2022 2:35 PM CHINESE INSTRUCTOR Narrative [facility] ([facility]) - 03/14/2022 10:06 PM CHINESE INSTRUCTOR Performed at: [address] [place] [id number] Leather Cleaner: George Mooney MD, Phone: [phone] us Patricia Ball DO LABORATORY Final Result [facility] ([facility]) [address] [place] [id number], [place] * LC HIV-1/O/2, 4TH GENERATION (03/11/2022 2:30 PM CHINESE INSTRUCTOR) Pathologist [facility] HIV Scr 4th Gen Non Reactive Non Reactive 03/13/2022 11:08 AM CHINESE INSTRUCTOR [facility] ([facility]) Comment: HIV Negative HIV-1/HIV-2 antibodies and HIV-1 p24 antigen were NOT detected. There is no laboratory evidence of HIV infection. Blood BLOOD SPECIMEN / Unknown Venipuncture / Unknown 03/11/2022 2:30 PM CHINESE INSTRUCTOR 03/11/2022 2:35 PM CHINESE INSTRUCTOR Narrative [facility] ([facility]) - 03/13/2022 11:08 AM CHINESE INSTRUCTOR Performed at: [facility] - [facility] [employer] [place] [id number] Leather Cleaner: George Mooney MD, Phone: [phone] us Patricia Ball DO LABORATORY Final Result [facility] ([facility]) [address] [place] [address], from Last 3 Months or Most Recently Relevant to Health Maintenance Insurance [address] [place] [id number] [place] [id number] [employer] [address] [place] [id number] [place] [address] [place] [address] Care Teams Building Coordinator Relationship Specialty Start Date End Date Patricia Ball DO [address] [place] [address] PCP - General Family Practice 02/14/24
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
--- NOTE | 2024-08-12 11:21 | CRLHL7_ITS ---
For Patients: As a result of the Century Cures Act, medical imaging exams and procedure reports are released immediately into your electronic medical record. You may view this report before your referring provider. If you have questions, please contact your health care provider. INDICATION: chest pain, wheezing R<L. TECHNIQUE: Chest 2 views. COMPARISON: Chest radiographs dated 12/29/2023. FINDINGS: Unremarkable cardiomediastinal contours. Mild streaky left basilar opacities. No sign of pleural effusion. No pneumothorax. No acute osseous or soft tissue findings. IMPRESSION: Mild streaky left basilar opacities, which could reflect atelectasis, aspiration, or pneumonia. Dictated by Davonte Santiago MD @ 08/12/2024 12:45:43 PM (Electronically Signed)
[2024-08-12] MEDS: ASPIRIN 81 MG TAB.CHEW 324 MG PO (11:29)
[2024-08-12 11:46] LABS: Hematocrit 44.9 % (37.0-53.0); Hemoglobin* 14.6 gm/dL (13.5-17.5); Immature Granulocytes Abs Auto 0.01 K/uL (0.00-0.30); Immature Granulocytes Pct Auto 0.1 %; Lymphocytes Absolute Auto 1.56 K/uL (0.90-2.90); Mean Corpuscular HGB Conc 33 gm/dL (32-36); Mean Corpuscular Hemoglobin 29 pg (26-34); Mean Corpuscular Volume 89 fL (80-100); RDW Coefficient of Variation % 12.9 % (11.5-15.5); Red Blood Count 5.07 m/uL (4.30-5.90); White Blood Count* 7.02 K/uL (4.50-11.00)
[2024-08-12 11:58] LABS: Chloride* 102 mmol/L (96-114)
[2024-08-12 11:59] LABS: Potassium* 3.5 mmol/L (3.6-5.1); Sodium* 138 mmol/L (135-149)
[2024-08-12] MEDS: IPRAT-ALBUT 0.5-2.5 MG/3 ML NEB 1 NEB IH (12:00)
[2024-08-12 12:01] LABS: Blood Urea Nitrogen* 12 mg/dL (5-24); Creatinine* 1.0 mg/dL (0.5-1.5); Estimated Glomerular Filt Rate 97 ml/min
[2024-08-12 12:02] LABS: Anion Gap 7 mEq/L (7-15); Calcium* 8.4 mg/dL (8.4-10.6); Carbon Dioxide* 29 mmol/L (20-32); Glucose* 112 mg/dL (60-115)
[2024-08-12 12:05] LABS: D Dimer Quantitative* 0.39 ug/ml (0.00-0.50)
[2024-08-12 12:10] LABS: Slide Review Reflex No
[2024-08-12 12:15] LABS: NT Pro B Type NatriureticPept* < 20 pg/mL (See Note)
== END 2024-08-12 14:50 | disposition home or self-care (01) ==
PROVIDERS: Emergency Provider Emergency Medicine; PCP Student in an Organized Health Care Education/Training Program
DX: J18.9 Pneumonia, unspecified organism (principal); J98.01 Acute bronchospasm; F17.210 Nicotine dependence, cigarettes, uncomplicated; Z59.00 Homelessness unspecified
CPT/HCPCS: 36415; 71046; 80048; 83880; 84484; 85025; 85379; 93005; 99283; 99284; 99285; A9270

== ENCOUNTER 2024-08-22 17:46 | Emergency (ER) | payer OTHER, SELFPAY ==
[2024-08-22] VITALS (14 sets, daily range): BP systolic 134–187; BP diastolic 83–101; PULSE 74–95; RESP 14–23; TEMP 36.1; O2SAT 82–100; BMI 51.6
--- OUTSIDE RECORDS SUMMARY | 2024-08-22 17:48 | XMS_ITS | Clinical Summary ---
Author Organization [facility] Address [address] [place] [address] Care Team Providers Care Slag Wheeler Name Role Phone Patricia Ball DO Primary Care Provider [phone] Allergies Active Allergy Reactions Criticality Noted Date [...] mouth at bedtime. 180 Tablet 3 01/13/20 24 Active sildenafiL, pulm.hypertensio n, (REVATIO) 20 mg [...] Encounters Date Type Department Care Team Description 08/12/2024 Orders Only [facility] SERVICES Scanner 1 scan: (1-Ord) [facility], XR CHEST, 08/12/2024 08/08/[address] [address] Patricia Ball DO Form (request for medical opinion) 06/15/2024 Telephone [facility] [address] [place] [address] Patricia Ball DO Appointment (Due for f/u [...] on file Legal Sex Male 6:39 AM FOIL WRAPPER Gender Identity Not on file Sexual Orientation Not on file Obstetrics History Last Filed Vital Signs Vital Sign Reading Time Taken Comments Blood Pressure 159/97 01/13/2024 2:31 PM FOIL WRAPPER Pulse 101 01/13/2024 2:31 PM FOIL WRAPPER Temperature 36.7 C (98.1 F) 02/12/2021 2:12 PM FOIL WRAPPER Respiratory Rate 22 02/12/2021 2:12 PM FOIL WRAPPER Oxygen Saturation 96% 01/13/2024 2:31 PM FOIL WRAPPER Inhaled Oxygen Concentration - - Weight 145.3 kg (320 lb 4.8 oz) 01/13/2024 2:31 PM FOIL WRAPPER Height 170 cm (5' 6.93) 01/13/2024 2:31 PM FOIL WRAPPER Body Mass Index 50.27 01/13/2024 2:31 PM FOIL WRAPPER Plan of Treatment Health Maintenance Due Date [...] Procedure Name Priority Date/Time Associated Diagnosis Comments SCAN-RADIOLOGY REPORT 08/12/2024 12:00 AM CDT LIPID PANEL W REFLEX MEASURED LDL Routine 01/13/2024 3:03 PM FOIL WRAPPER Lipid screening LC HIV-1/O/2, 4TH GENERATION Routine 03/11/2022 2:30 PM FOIL WRAPPER Screening for HIV (human immunodeficiency virus) LC HCV ANTIBODY RFX TO QUANT PCR Routine 03/11/2022 2:30 PM FOIL WRAPPER Need for hepatitis C screening test from Last 3 Months or Most Recently Relevant to Health Maintenance Results * SCAN-RADIOLOGY REPORT (08/12/2024 12:00 AM CDT) Anatomical Region Laterality Modality Other us Scanner OTHER Final Result * LIPID PANEL W REFLEX MEASURED LDL (01/13/2024 3:03 PM FOIL WRAPPER) CHOLESTEROL, TOTAL 165 <200 mg/dL [facility] HDL CHOLESTEROL 53 > OR = 40 mg/dL [facility] TRIGLYCERIDES 138 <150 mg/dL [facility] LDL-CHOLESTEROL 88 mg/dL (calc) [facility] Comment: Reference range: <100 Desirable range <100 mg/dL for primary prevention; <70 mg/dL for patients with CHD or diabetic patients with > or = 2 CHD risk factors. LDL-C is now calculated using the Sasha calculation, which is a validated novel method providing better accuracy than the Friedewald equation in the estimation of LDL-C. Joel SS et al. MIGUEL ANGEL. 2013;310(19): 1011-0410 (http://education.[employer]/faq/DHT605) CHOL/HDLC RATIO 3.1 <5.0 (calc) [facility] NON HDL CHOLESTEROL 112 <130 mg/dL (calc) [facility] Comment: For patients with diabetes plus 1 major ASCVD risk factor, treating to a non-HDL-C goal of <100 mg/dL (LDL-C of <70 mg/dL) is considered a therapeutic option. Blood BLOOD SPECIMEN / Unknown 01/13/2024 3:03 PM FOIL WRAPPER 01/13/2024 3:03 PM FOIL WRAPPER [employer]i [employer] DO CHEMISTRY Final Result [facility] [address] [place] [address], [employer] [address] * LC HCV ANTIBODY RFX TO QUANT PCR (03/11/2022 2:30 PM FOIL WRAPPER) Pathologist [facility] HCV Ab <0.1 0.0 - 0.9 s/co ratio 03/14/2022 10:06 PM FOIL WRAPPER [facility]) Blood BLOOD SPECIMEN / Unknown Venipuncture / Unknown 03/11/2022 2:30 PM FOIL WRAPPER 03/11/2022 2:35 PM FOIL WRAPPER Narrative [facility] - 03/14/2022 10:06 PM FOIL WRAPPER Performed at: [address] [place] [id number] Supervisor [employer]: George Mooney MD, Phone: [phone] Adei Shaqra DO LABORATORY Final Result [facility] (CET) [address] [place] [address], * LC HIV-1/O/2, 4TH GENERATION (03/11/2022 2:30 PM FOIL WRAPPER) HIV Scr 4th Gen Non Reactive Non Reactive 03/13/2022 11:08 AM FOIL WRAPPER [facility] ([facility]) Comment: HIV Negative HIV-1/HIV-2 antibodies and HIV-1 p24 antigen were NOT detected. There is no laboratory evidence of HIV infection. Blood BLOOD SPECIMEN / Unknown Venipuncture / Unknown 03/11/2022 2:30 PM FOIL WRAPPER 03/11/2022 2:35 PM FOIL WRAPPER Narrative [facility] (CET) - 03/13/2022 11:08 AM FOIL WRAPPER Performed at: [address] [place] [id number] Supervisor [employer]: George Mooney MD, Phone: [phone] [email or web address] LABORATORY Final Result Performing Organization Address City/[facility] Co de Phone Number [facility] ([facility]) [address] [place] [address] from Last 3 Months or Most Recently Relevant to Health Maintenance Insurance [address] [place] [phone] [place] [id number] [place] [id number] [place] [phone] [place] [phone] Care Teams Slag Wheeler Relationship Specialty Start Date End Date Patricia Ball [place] [address] PCP - General Family Practice 02/14/24
--- NOTE | 2024-08-22 19:08 | CRLHL7_ITS ---
For Patients: As a result of the Cures Act, medical imaging exams and procedure reports are released immediately into your electronic medical record. You may view this report before your referring provider. If you have questions, please contact your health care provider. INDICATION: Shortness of breath. TECHNIQUE: Chest 2 views. COMPARISON: August 12, 2024. FINDINGS: Cardiovascular and mediastinum: Heart size and vasculature are normal in caliber and appearance. Lungs and pleural spaces: Lungs are clear. No sign of infiltrate or mass. No sign of pleural effusion. No pneumothorax. Bones and soft tissues: No significant findings. IMPRESSION: No acute or significant findings. Dictated by Gumaro Phipps MD @ 08/22/2024 7:23:50 PM (Electronically Signed)
--- NOTE | 2024-08-22 19:12 | ED.GENADULT ---
HPI - General Adult General Chief complaint: Abdominal Pain Stated complaint: feeling very cold, stomachache Time Seen by Provider: 08/22/24 18:38 Source: patient Mode of arrival: ambulatory Limitations: no limitations History of Present Illness HPI narrative: 39-year-old male coming in today complaining of not feeling well. He states that he was in his usual state of health when all of a sudden he became extremely worn out. He feels cold, no shivering. He complains of some nonspecific abdominal discomfort that is located everywhere. The bowel movements have been normal. He states he has been eating and drinking normally. He denies any urinary symptoms such as increased frequency, urgency or dysuria. He was diagnosed with pneumonia 10 days ago, states that he took all of his antibiotics and finished those about 5 days ago. States that he has no energy whatsoever this is very unusual for him. He denies headache, changes in his vision. He denies chest pain, shortness of breath or cough. He denies any new skin rashes that he is aware of. He denies alcohol or drug use. Related Data Allergies Allergy/AdvReac Type Severity Reaction Status Date / Time No Known Drug Allergies Allergy Verified 08/22/24 17:56 Review of Systems Status of ROS: Reports: 10 or more systems reviewed and unremarkable except as noted in History and below [facility] Social History Smoking Status: Current every day smoker What tobacco products do you use: cigarettes Smoking packs per day: 0.5 Smoking cigarettes per day: 10.0 Do you use any of these nicotine containing products: None Second hand tobacco smoke exposure: No How often do you have a drink containing alcohol: never AUDIT-C Alcohol total score: 0 Non-prescribed substance use: denies use service: No Exam Narrative: Exam Narrative: Obese come well-developed patient in no acute distress. Alert and oriented x3. Answers questions appropriately but is very slow to respond. Patient is cooperative and follows commands. However, rarely opens his eyes and is sleepy but remains awake. Patient appears to be on some kind of substance. Patient is disheveled, strong odor. Speech is slurred. HEENT: Normocephalic atraumatic. Pupils are equally round reactive to light but sluggish. Extraocular muscles are intact. Conjunctivae are moist without any icterus noted. He does have injection bilaterally. Dry mucous membranes. Posterior pharynx is normal. He has a large usual a consistent with snoring/obstructive sleep apnea. Does not appear infected. Neck is soft without any lymphadenopathy or thyromegaly. No masses are appreciated. Cardiovascular: Heart is regular rate and rhythm S1 and S2 are present without any murmurs. Lungs: Clear to auscultation bilaterally no wheezes rhonchi or rales are appreciated. Patient takes deep breaths without any discomfort. Abdomen: Soft and nontender nondistended with normal bowel sounds. No guarding. Difficult to assess for organomegaly or masses secondary to body habitus. Extremities: Bilateral lower extremities are without edema. Skin: Well perfused, multiple scabs covering upper and lower extremities. Const: Vital Signs, click to edit/add: Vital Signs - 24 hr 08/22/24 17:50 08/22/24 19:08 08/22/24 19:23 Temperature 97.0 F L Pulse Rate Pulse Rate [Pulse Oximeter] 90 Respiratory Rate 20 15 Blood Pressure Blood Pressure [Ri ght Upper Arm] 187/101 H Pulse Oximetry 98 100 Oxygen Delivery Me od Room Air 08/22/24 19:24 08/22/24 19:30 08/22/24 19:33 Temperature Pulse Rate 74 Pulse Rate [Pulse Oximeter] Respiratory Rate 20 19 15 Blood Pressure 142/93 H 134/85 Blood Pressure [Ri ght Upper Arm] Pulse Oximetry 97 Oxygen Delivery Ca thod 08/22/24 19:45 08/22/24 20:00 08/22/24 20:02 Temperature Pulse Rate 74 77 82 Pulse Rate [Pulse Oximeter] Respiratory Rate 15 14 15 Blood Pressure 142/83 H Blood Pressure [Ri ght Upper Arm] Pulse Oximetry 98 97 95 Oxygen Delivery Ca thod 08/22/24 20:15 08/22/24 20:30 08/22/24 20:32 Temperature Pulse Rate 86 77 86 Pulse Rate [Pulse Oximeter] Respiratory Rate 18 16 16 Blood Pressure 144/95 H Blood Pressure [Ri ght Upper Arm] Pulse Oximetry 91 93 82 L Oxygen Delivery Ca thod 08/22/24 21:01 08/22/24 21:03 Temperature Pulse Rate 95 86 Pulse Rate [Pulse Oximeter] Respiratory Rate 23 23 Blood Pressure 140/85 H Blood Pressure [Ri ght Upper Arm] Pulse Oximetry 99 97 Oxygen Delivery Me thod Course Course ED Course: Patient was placed on a heart monitor with continuous pulse ox. IV established and he is given a L of normal saline. Workup is unremarkable aside from a lactate at 2.0. 2 L of normal saline was started. His urine drug screen did come back positive for methamphetamines. Patient again denies doing any drugs. Vital Signs Vital signs: Initial Vital Signs Temperature 97.0 F L 08/22/24 17:50 Temperature Source Temporal Artery Scan 08/22/24 17:50 Pulse Rate 90 08/22/24 17:50 Respiratory Rate 20 08/22/24 17:50 Blood Pressure 187/101 H 08/22/24 17:50 Blood Pressure Mean 129 H 08/22/24 17:50 Blood Pressure Position Sitting 08/22/24 17:50 Pulse Oximetry 98 08/22/24 17:50 Oxygen Delivery Method Room Air 08/22/24 17:50 Vital Signs Temperature 97.0 F L 08/22/24 17:50 Pulse Rate 90 08/22/24 17:50 Respiratory Rate 20 08/22/24 17:50 Blood Pressure 187/101 H 08/22/24 17:50 Pulse Oximetry 98 08/22/24 17:50 Oxygen Delivery Method Room Air 08/22/24 17:50 Temperature 97.0 F L 08/22/24 17:50 Pulse Rate 86 08/22/24 21:03 Respiratory Rate 23 08/22/24 21:03 Blood Pressure 140/85 H 08/22/24 21:03 Pulse Oximetry 97 08/22/24 21:03 Oxygen Delivery Method Room Air 08/22/24 17:50 Medications Administered Medications: Generic Name Dose Route Start Last Admin Trade Name Freq PRN Reason Stop Dose Admin Sodium Chloride 1,000 mls @ 1,000 mls/hr 08/22/24 20:45 08/22/24 21:00 0.9 % Sodium Chloride 1000 Ml IV 08/22/24 21:44 1,000 mls/hr .Q1H BISI Administration Discontinued Medications Generic Name Dose Route Start Last Admin Trade Name Freq PRN Reason Stop Dose Admin Sodium Chloride 1,000 mls @ 1,000 mls/hr 08/22/24 19:15 08/22/24 20:52 0.9 % Sodium Chloride 1000 Ml IV 08/22/24 20:14 Infused .Q1H BISI Infusion Medical Decision Making MDM Narrative Medical decision making narrative: 39-year-old male not feeling well. Unclear etiology. Positive methamphetamine in urine drug screen-patient denies any drug use. Patient is homeless. His mother is here with him. They are looking for place to stay tonight. He states that they go to a senior care every night to see if there is room, plan to go to the same senior care tonight. Of note, he was hemodynamically stable the entire time. Lab Data Lab results reviewed: Yes I reviewed the patient's lab results Labs: Lab Results 08/22/24 08/22/24 08/22/24 Range/Units 19:09 19:30 19:35 WBC 9.34 (4.50-11.00) K/uL RBC 4.98 (4.30-5.90) m/uL Hgb 14.4 (13.5-17.5) gm/dL Hct 44.9 (37.0-53.0) % MCV 90 (80-100) fL MCH 29 (26-34) pg MCHC 32 (32-36) gm/dL RDW Coeff of Sarahi 13.0 (11.5-15.5) % Plt Count 274 (140-440) K/uL Neut % (Auto) 70.1 (42.0-72.0) % Lymph % (Auto) 20.0 (20-44) % [place] % (Auto) 6.1 (0.0-11.0) % Eos % (Auto) 3.3 (0.0-7.0) % Baso % (Auto) 0.3 (0.0-3.0) % Neut # (Auto) 6.54 (1.7-7.0) K/uL Lymph # (Auto) 1.87 (0.90-2.90) K/uL [place] # (Auto) 0.60 (0.00-0.90) K/UL Eos # (Auto) 0.31 (0.00-0.50) K/uL Baso # (Auto) 0.03 (0.00-0.30) K/uL Abs Immat Gran (auto) 0.02 (0.00-0.30) K/uL Imm/Tot Granulo (auto) 0.2 % ESR 4 (2-15) mm/hr Sodium 139 (135-149) mmol/L Potassium 3.5 L (3.6-5.1) mmol/L Chloride 105 (96-114) mmol/L Carbon Dioxide 29 (20-32) mmol/L Anion Gap 5 L (7-15) mEq/L BUN 9 (5-24) mg/dL Creatinine 0.8 (0.5-1.5) mg/dL Estimated Creat Clear 109.66 Estimated GFR 114 ml/min Glucose 123 H (60-115) mg/dL Lactate 2.0 H (0.5-1.9) mmol/L Calcium 8.3 L (8.4-10.6) mg/dL Total Bilirubin 0.5 (0.1-1.5) mg/dL Direct Bilirubin 0.0 (0.0-0.5) mg/dL AST 22 (12-35) U/L ALT 21 (4-50) U/L Alkaline Phosphatase 74 (40-150) U/L Troponin I < 0.01 (0.01-0.04) ng/mL C-Reactive Protein 1.5 H (0.5-1.0) mg/dL Total Protein 6.8 (6.0-8.3) g/dL Albumin 3.9 (3.3-5.0) g/dL Lipase 98 (23-300) U/L Urine Color Yellow (Yellow) Urine Appearance Clear (Clear) Urine pH 6.0 (5.0-8.5) Ur Specific [place] 1.025 (1.000-1.030) Urine Protein Negative (Negative) Urine Glucose (UA) Negative (Negative) Urine Ketones Negative (Negative) Urine Blood Negative (Negative) Urine Nitrite Negative (Negative) Urine Bilirubin Negative (Negative) Urine Urobilinogen 0.2 (0.2-1.0) Ur Leukocyte Esterase Negative (Negative) Urine RBC 0-2 (0-2) Urine WBC 0-2 (0-5) Ur Squamous Epith Cells None (None-Few) Urine Bacteria None (None) Salicylates < 1.0 L (1.0-10) mg/dL Urine Opiates Screen Negative (Negative) Ur Oxycodone Screen Negative (Negative) Urine Methadone Screen Negative (Negative) Acetaminophen < 10.0 (10.0-30.0) ug/mL Ur Barbiturates Screen Negative (Negative) U Tricyclic Antidepress Negative (Negative) Ur Phencyclidine Scrn Negative (Negative) Ur Amphetamines Screen POSITIVE A (Negative) U Methamphetamines Scrn POSITIVE A (Negative) U Benzodiazepines Scrn Negative (Negative) Urine Cocaine Screen Negative (Negative) U Marijuana (THC) Screen Negative (Negative) Ur Drug Screen Comment See Note Ethyl Alcohol < 0.01 (0.01-0.03) % SARS-CoV-2 (PCR) Negative SARS-CoV-2 (Negative) Monoscreen Negative (Negative) Influenza Type A (PCR) Negative PCR FLU A (Negative) Influenza Type B (PCR) Negative PCR FLU B (Negative) RSV (PCR) Negative PCR RSV (Negative) Imaging Data Chest x-ray: Attestation: I have reviewed the pertinent imaging results. Radiologist's impression: TECHNIQUE: Chest 2 views. COMPARISON: August 12, 2024. FINDINGS: Cardiovascular and mediastinum: Heart size and vasculature are normal in caliber and appearance. Lungs and pleural spaces: Lungs are clear. No sign of infiltrate or mass. No sign of pleural effusion. No pneumothorax. Bones and soft tissues: No significant findings. IMPRESSION: No acute or significant findings. Discharge Plan Discharge Clinical Impression: Feeling unwell Patient Disposition: Home, Self-Care Condition: Stable Additional Instructions: Return to the emergency department if you start to feel worse. You did have methamphetamines in your urine drug screen today. Follow Up/Referrals: ADA LANDIS DO [Primary Care Provider, Family Practice] Stand Alone Forms: [employer] Info Instructions
[2024-08-22 19:38] LABS: Lactate* 2.0 mmol/L (0.5-1.9)
[2024-08-22 19:45] LABS: Hematocrit* 44.9 % (37.0-53.0); Hemoglobin* 14.4 gm/dL (13.5-17.5); Immature Granulocytes Abs Auto 0.02 K/uL (0.00-0.30); Immature Granulocytes Pct Auto 0.2 %; Lymphocytes Absolute Auto 1.87 K/uL (0.90-2.90); Mean Corpuscular HGB Conc 32 gm/dL (32-36); Mean Corpuscular Hemoglobin 29 pg (26-34); Mean Corpuscular Volume 90 fL (80-100); RDW Coefficient of Variation % 13.0 % (11.5-15.5); Red Blood Count* 4.98 m/uL (4.30-5.90); White Blood Count* 9.34 K/uL (4.50-11.00)
[2024-08-22 20:01] LABS: Slide Review Reflex No
[2024-08-22 20:07] LABS: Albumin* 3.9 g/dL (3.3-5.0); Chloride* 105 mmol/L (96-114); Sodium* 139 mmol/L (135-149)
[2024-08-22 20:08] LABS: Potassium* 3.5 mmol/L (3.6-5.1)
[2024-08-22 20:09] LABS: Blood Urea Nitrogen* 9 mg/dL (5-24); Creatinine* 0.8 mg/dL (0.5-1.5); Est. Creatinine Clearance* 109.66; Estimated Glomerular Filt Rate 114 ml/min
[2024-08-22 20:10] LABS: Alanine Aminotransferase* 21 U/L (4-50); Alkaline Phosphatase* 74 U/L (40-150); Anion Gap 5 mEq/L (7-15); Aspartate Amino Transferase* 22 U/L (12-35); Bilirubin Direct* 0.0 mg/dL (0.0-0.5); Bilirubin Total* 0.5 mg/dL (0.1-1.5); Calcium* 8.3 mg/dL (8.4-10.6); Carbon Dioxide* 29 mmol/L (20-32); Glucose* 123 mg/dL (60-115); Total Protein* 6.8 g/dL (6.0-8.3)
[2024-08-22 20:12] LABS: Acetaminophen* < 10.0 ug/mL (10.0-30.0); Ethanol* < 0.01 % (0.01-0.03); Salicylate* < 1.0 mg/dL (1.0-10)
[2024-08-22 20:15] LABS: Mono Screen* Negative (Negative)
[2024-08-22 20:19] LABS: PCR FLU A Negative PCR FLU A (Negative); PCR FLU B Negative PCR FLU B (Negative); PCR RSV Negative PCR RSV (Negative); SARS PCR* Negative SARS-CoV-2 (Negative)
[2024-08-22 20:52] LABS: Erythrocyte SedimentationRate* 4 mm/hr (2-15)
[2024-08-22 20:53] LABS: Appearance Urine Clear (Clear)
[2024-08-22 21:04] LABS: Cannabinoid Screen Urine Negative (Negative); Methamphetamines Screen Urine POSITIVE (Negative); Tricyclic Antidepressant Urine Negative (Negative)
== END 2024-08-22 22:22 | disposition home or self-care (01) ==
PROVIDERS: Emergency Provider Family Medicine; PCP Student in an Organized Health Care Education/Training Program
DX: F15.90 Other stimulant use, unspecified, uncomplicated (principal); Z71.1 Person with feared health complaint in whom no diagnosis is made
CPT/HCPCS: 36415; 71046; 80048; 80076; 80143; 80179; 80306; 81001; 82077; 83605; 83690; 84484; 85025; 85651; 86140; 86308; 87086; 87637; 93005; 94761; 96360; 96361; 99283; 99284; 99285; J7030

== ENCOUNTER 2024-09-18 10:19 | Outpatient (CLI) | payer MEDICAID, SELFPAY | END 2024-09-18 10:20 | disposition home or self-care (01) | LOC: AMB 09-20 13:49 | PROVIDERS: PCP Student in an Organized Health Care Education/Training Program; Visit Provider Emergency Medicine Emergency Medical Services | DX: R53.1 Weakness (principal); R42 Dizziness and giddiness | CPT/HCPCS: A0425; A0429 ==

== ENCOUNTER 2024-09-18 10:50 | Emergency (ER) | payer MEDICAID, SELFPAY ==
--- OUTSIDE RECORDS SUMMARY | 2024-09-18 10:52 | XMS_ITS | Clinical Summary ---
Author Organization [facility] Address [address] [place] [address] Care Team Providers Care Luncheonette Operator Name Role Phone Patricia Ball DO Primary Care Provider [phone] Allergies Active Allergy Reactions Criticality Noted Date [...] Encounters Date Type Department Care Team Description 08/22/2024 Orders Only [facility] Scanner 1 scan: (1-Ord) [facility], XR CHEST 2V, 08/22/2024 08/12/2024 Orders Only [facility] HIM SERVICES Scanner 1 scan: (1-Ord) [facility], XR CHEST, 08/12/2024 08/08/2024 Telephone [facility] [address] [place] [address] Patricia Ball, Form (request for medical opinion) from Last 3 Months Immunizations Immunization Administration [...] Date Smoking Tobacco: Every Day Cigarettes 0.5 22.6 Started: 02/13/2002 Smokeless Tobacco: Never Tobacco Cessation:Ready [...] on file Legal Sex Male 6:39 AM TOOLMAKER HELPER Gender Identity Not on file Sexual Orientation Not on file Obstetrics History Last Filed Vital Signs Vital Sign Reading Time Taken Comments Blood Pressure 159/97 01/13/2024 2:31 PM TOOLMAKER HELPER Pulse 101 01/13/2024 2:31 PM TOOLMAKER HELPER Temperature 36.7 C (98.1 F) 02/12/2021 2:12 PM TOOLMAKER HELPER Respiratory Rate 22 02/12/2021 2:12 PM TOOLMAKER HELPER Oxygen Saturation 96% 01/13/2024 2:31 PM TOOLMAKER HELPER Inhaled Oxygen Concentration - - Weight 145.3 kg (320 lb 4.8 oz) 01/13/2024 2:31 PM TOOLMAKER HELPER Height 170 cm (5' 6.93) 01/13/2024 2:31 PM TOOLMAKER HELPER Body Mass Index 50.27 01/13/2024 2:31 PM TOOLMAKER HELPER Plan of Treatment Health Maintenance Due Date [...] Priority Date/Time Associated Diagnosis Comments SCAN-RADIOLOGY REPORT 08/22/2024 12:00 AM CDT SCAN-RADIOLOGY REPORT 08/12/2024 12:00 AM CDT LIPID PANEL W REFLEX MEASURED LDL Routine 01/13/2024 3:03 PM TOOLMAKER HELPER Lipid screening LC HIV-1/O/2, 4TH GENERATION Routine 03/11/2022 2:30 PM TOOLMAKER HELPER Screening for HIV (human immunodeficiency virus) LC HCV ANTIBODY RFX TO QUANT PCR Routine 03/11/2022 2:30 PM TOOLMAKER HELPER Need for hepatitis C screening test from Last 3 Months or Most Recently Relevant to Health Maintenance Results * SCAN-RADIOLOGY REPORT (08/22/2024 12:00 AM CDT) Only the most recent of2 resultswithin the time period is included. Anatomical Region Laterality Modality Other us Scanner OTHER Final Result * LIPID PANEL W REFLEX MEASURED LDL (01/13/2024 3:03 PM TOOLMAKER HELPER) CHOLESTEROL, TOTAL 165 <200 mg/dL [facility] Joel LE et al. MIGUEL ANGEL. 2013;310(19): 5975-6571 (http://education.FuturestateIT/faq/MPW193) CHOL/HDLC RATIO 3.1 <5.0 (calc) [facility] NON HDL CHOLESTEROL 112 <130 mg/dL (calc) [facility] Comment: For patients with diabetes plus 1 major ASCVD risk factor, treating to a non-HDL-C goal of <100 mg/dL (LDL-C of <70 mg/dL) is considered a therapeutic option. Blood BLOOD SPECIMEN / Unknown 01/13/2024 3:03 PM TOOLMAKER HELPER 01/13/2024 3:03 PM TOOLMAKER HELPER us Adei Quinn DO CHEMISTRY Final Result Informative [facility] [address] [place] [address], [facility] [address] [place] [phone] * LC HCV ANTIBODY RFX TO QUANT PCR (03/11/2022 2:30 PM TOOLMAKER HELPER) [facility] HCV Ab <0.1 0.0 - 0.9 s/co ratio 03/14/2022 10:06 PM TOOLMAKER HELPER [facility] Blood BLOOD SPECIMEN / Unknown Venipuncture / Unknown 03/11/2022 2:30 PM TOOLMAKER HELPER 03/11/2022 2:35 PM TOOLMAKER HELPER Narrative [facility] ([facility]) - 03/14/2022 10:06 PM TOOLMAKER HELPER Performed [address] [id number] [employer] Glass Bulb Machine Former: George Mooney MD, Phone: [phone] us Adeosmel Ball DO LABORATORY Final Result [facility] ([facility]) [address] [place] [address], * LC HIV-1/O/2, 4TH GENERATION (03/11/2022 2:30 PM TOOLMAKER HELPER) [facility] Signature HIV Scr 4th Gen Non Reactive Non Reactive 03/13/2022 11:08 AM TOOLMAKER HELPER [facility] ([facility]) Comment: HIV Negative HIV-1/HIV-2 antibodies and HIV-1 p24 antigen were NOT detected. There is no laboratory evidence of HIV infection. Blood BLOOD SPECIMEN / Unknown Venipuncture / Unknown 03/11/2022 2:30 PM TOOLMAKER HELPER 03/11/2022 2:35 PM TOOLMAKER HELPER Narrative [facility] ([facility]) - 03/13/2022 11:08 AM TOOLMAKER HELPER Performed at: [address] [place] [id number] [employer] Glass Bul[employer] Machine Former: George Mooney MD, Phone: [phone] Patricia Ball DO LABORATORY Final Result Performing Organization Address [facility] Co de Phone Number [facility] ([facility]) [address] [place] [address] from Last 3 Months or Most Recently Relevant to Health Maintenance Insurance [address] [place] [id number] [place] [id number] [employer] [address] [place] [id number] [place] [phone] [place] [id number] Care Teams Luncheonette Operator Relationship Specialty Start Date End Date Patricia [place] [address] PCP - General Family Practice 02/14/24
[2024-09-18 10:55] VITALS: BP 148/101; PULSE 80; RESP 20; TEMP 36.1; O2SAT 97; BMI 53.3
--- NOTE | 2024-09-18 10:55 | ED_ITS ---
HPI - General Adult General Date Seen: 09/18/24 Chief complaint: Extremity Pain/Injury, Lower Stated complaint: dizziness,weakness Time Seen by Provider: 09/18/24 10:55 History of Present Illness HPI narrative: 39 yo M brought to ER by EMS from the [facility]. I called the urgent care and discussed with the provider. She reports that he presented to the urgent care. It sounds like there is a lot of varying history and chaos and confusion about what his symptoms were and what might be wrong. It sounds like he had altered mental status and they were concerned that there might be a significant infection or BRAKE RIDER injury.. He gave varying stories about how he arrived there. He told 1 person that he walked there. He told her that he rode his bike there. He told that he was homeless. He seemed drowsy and was nodding off between questions. She felt like his left foot looked like there were abrasions on it. She was not sure if it was read or not. It was very dirty. Patient was not providing on a clear history to the urgent care. It sounds like he had initially denied any meth use initially and then reported using meth a couple of days ago. Had reported that he might have fallen hit his head a couple of days ago and 1 point said he had a headache. He was providing a variable history and did not seem reliable. She was not sure if there were of critical illness going on or not. The urgent care provider was not sure if he had a head injury, drug intoxication, or if he might even be septic. Not being able to do a proper workup, she referred him here to the ER. Additional history from the patient. At this time he is sleeping in bed but easily arousable and when awake he is actually smiling and conversant. I am able to clarify a lot of details. He is currently homeless. He has been staying at a picnic care home in [facility] here in [place]. 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 for a permanent housing. 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 He says no one in [place] is hiring. When we discussed that he might need to look outside of [place] to get employment so he can have placed live, he says he will think about maybe looking in [facility]. He does not have any imminent plans to get a job. We even discussed that he could perhaps get a job as a non tank welder here in [place]. He expresses interest but denies any specific plan. He got his public assistance on the of the month. He spent most of it on cigarettes. He gave 100 dollars to his 14-year-old daughter. He does not have other arciniega right now. He is currently using meth these days. I asked him, if he does not have any money, how does he get meth. It sounds like he obtained money from 4 other people and then went to a drug dealer to buy them meth. There was some meth left over and he kept it for himself. He did not have to spend any of his own money to get the med he has been using. He uses meth fairly regularly. Initially he said that he last used meth 4- 5 days ago. When asked can get clarification he indicates with a shrug of his shoulders that he actually used as recently as last night. He he did twist his ankle on Tuesday and fell forward and hit his head against a bench in the care home at [facility]. He did not have a loss of consciousness. He has not a persistent headache. He had told the urgent care that he had a headache but he says actually he does not. He denies nausea. He says his vision is normal. What brought him to the urgent care this morning is that his left foot was hurting and throbbing. He also just felt tired and had ?no energy. ?. So he rode his bike to the urgent care. He did not plan on sending him to the ER. Related Data Previous Rx's ?Medication ?Instructions ?Recorded terbinafine HCl 1 % topical cream 1 applic topical BID #30 grams 09/18/24 Allergies Allergy/AdvReac Type Severity Reaction Status Date / Time No Known Drug Allergies Allergy Verified 09/18/24 09:40 [facility] Social History Smoking Status: Current every day smoker What tobacco products do you use: cigarettes Smoking packs per day: 0.5 Smoking cigarettes per day: 10.0 Do you use any of these nicotine containing products: None Second hand tobacco smoke exposure: No How often do you have a drink containing alcohol: never AUDIT-C Alcohol total score: 0 Non-prescribed substance use: denies use service: No Exam Narrative: Exam Narrative: Constitutional: Appears well-developed and well-nourished. Initially he is awake and alert andConversant. Non toxic. As I am washing his foot he rest his head back on the pillow and does fall asleep momentarily but easily arouses to voice and when awoken he is pleasant and conversant. HENT: Head: Atraumatic. No depressed skull fracture, Raccoon Eyes, Smith's sign, or hemotympanum. Face normal. TMs normal Nose: Nose normal. Mouth/Throat: Oral mucosa is clear and moist. no trismus. Pharynx normal. Tonsils symmetric. No tonsillar enlargement, erythema, or exudate. Poor dentition. Eyes: Conjunctivae normal. EOM normal. Pupils equal, round, and reactive to light. No scleral icterus. Neck: Normal range of motion. Neck supple. No tracheal deviation present. Cardiovascular: Normal rate, regular rhythm. No gallop. No friction rub. No murmur heard. Symmetric radial artery pulses Pulmonary/Chest: Effort normal. No stridor. No respiratory distress. No wheezes. No rales. No rhonchi . Musculoskeletal: RUE: Normal range of motion. No tenderness. No deformity LUE: Normal range of motion. No tenderness. No deformity RLE: Normal range of motion. No edema. No tenderness. No deformity LLE: Normal range of motion. No edema. No tenderness. No deformity Lymph: No cervical adenopathy. Neurological: Alert and oriented to person, place, and time. Normal strength. CN II-VII intact. No sensory deficit. GCS eye subscore is 4. GCS verbal subscore is 5. GCS motor subscore is 6. Normal coordination Skin: Patient is homeless so has not taken a shower in a few days. He has significant Grime and dirt on his lower legs and feet. He is wearing Crocs without socks. We took off issues for exam. He does have calluses on his feet and significant dirt ground into the soles of his feet. There is also dirt on his toenails and between his toes. I grab some Shur-Clens skin cleanser and warm water and gently cleaned his feet with a washcloth. I was able to get a lot of the Grime off. It he does have a blister on the dorsum of his foot between the proximal and of the 1st 2nd webspace. There is really no purulent drainage. No surrounding erythema. No sign of infection. There is still significant dirt ground into the soles of his feet. We had him soak his feet in a basin. After this I am able to see the soles of his feet. There are calluses there but no other blisters or ulcers. No sign of infection there. He does have a little bit of dry skin an athlete's foot around the sides of his foot. Skin between the toes actually looks pretty good. No maceration or blisters or skin breakdown. Skin is warm and dry. No rash noted. No pallor. Normal capillary refill. Psychiatric: Endorses current meth use. Does not want treatment. Pleasant and cooperative. Does not lower he was very tired and worn out this morning. Denies any thoughts of self-harm. He is currently homeless. He is waiting on the [facility] to get him housing. For able to discuss his job situation. He says he is a tank welder but there is no-one hiring in [place]. He does not want to look outside of [place] for another job. Const: Vital Signs, click to edit/add: Vital Signs - 24 hr 09/18/24 10:55 Temperature 96.9 F L Pulse Rate [Pulse Oximeter] 80 Respiratory Rate 20 Blood Pressure [Le ft Upper Arm] 148/101 H Pulse Oximetry 97 Oxygen Delivery Me thod Room Air Course Vital Signs Vital signs: Initial Vital Signs Temperature 96.9 F L 09/18/24 10:55 Temperature Source Temporal Artery Scan 09/18/24 10:55 Pulse Rate 80 09/18/24 10:55 Respiratory Rate 20 09/18/24 10:55 Blood Pressure 148/101 H 09/18/24 10:55 Blood Pressure Mean 116 H 09/18/24 10:55 Blood Pressure Position Supine 09/18/24 10:55 Pulse Oximetry 97 09/18/24 10:55 Oxygen Delivery Method Room Air 09/18/24 10:55 Vital Signs Temperature 96.9 F L 09/18/24 10:55 Pulse Rate 80 09/18/24 10:55 Respiratory Rate 20 09/18/24 10:55 Blood Pressure 148/101 H 09/18/24 10:55 Pulse Oximetry 97 09/18/24 10:55 Oxygen Delivery Method Room Air 09/18/24 10:55 Temperature 96.9 F L 09/18/24 10:55 Pulse Rate 80 09/18/24 10:55 Respiratory Rate 20 09/18/24 10:55 Blood Pressure 148/101 H 09/18/24 10:55 Pulse Oximetry 97 09/18/24 10:55 Oxygen Delivery Method Room Air 09/18/24 10:55 Medical Decision Making MDM Narrative Medical decision making narrative: 39-year-old gentleman brought to the ER today by EMS. He initially presented to the urgent care and they referred him here to the ER. It sounds like his presentation the urgent care was very chaotic. He had presented with foot pain and fatigue but also was very somnolent and nodding off during the exam. Urgent Care was unsure if he had head injury, sepsis, or other life-threatening emergency so referred him here. Upon presentation he in the ER he is actually fairly alert and oriented. Having had passed interactions with him, I was able to easily established for poor and he is able to provide me what I think is a fairly believable history. He initially denies any meth use for several days but then does admit that he was using last night. 1. Head injury. It sounds like there was some concern urgent care that he had had a head injury. He does say that he tripped and fell a few nights ago and bumped his head but denies any headache here. At this point I do not think he needs a head CT. He is not having any neck pain or back pain or any other signs of significant traumatic injury from the fall. 2. Mental status. He was apparently very early drowsy at the urgent care. He does occasionally fall asleep here in the ER. I think this is partly a combination of poor sleep because he is homeless and be probably catecholamine washout because he was using meth last night. He is easily arousable and conversant. He has a cellphone was able contact his mother and she will come here to the ER to pick him up. He is clearly mentating normally, motivated for future thoughts. I do not think he has persistent altered mental status that raises concern for BRAKE RIDER injury, BRAKE RIDER infection, electrolyte disturbance, hypoglycemia. At this point I do not think he needs advanced imaging or labs. Mental status is generally alert and oriented and he is actually fairly positive and pleasant here in the ER. 3. The patient's main concern is that he has pain in the top of his left foot in particular a blister located on the dorsum of the webspace between the 1st and 2nd toes. I think this is a blister likely triggered by rub against his Crocs without any socks. He does do a lot of walking because is currently homeless. At this point I do not see any evidence for purulent drainage or surrounding erythema to suggest that there is an evolving infection or cellulitis from this blister. I do not think he needs systemic antibiotics. He is not febrile and his vital signs are normal. I do not think he has sepsis. At this point I do not think he needs laboratory workup. Will treat as blister with wound care. He was already scrubbed and cleaned by myself here in the ER. Will apply bacitracin ointment. Will get him some socks to help protect his foot. He says he thinks he will be able to go to [facility] and get some proper footwear today. His mother will actually be here to pick him up in her car and she can help take him there. Incidentally he does have some signs of athlete's foot around side of his foot. Will put him on topical antifungal for that. 4. Homelessness. This patient does have ongoing homelessness. He is already hooked up with resources through the [facility] and has a common home health care case manager. It sounds like he is currently on a waiting list to get into a long-term living his care home. His mother is here and will be able to give him a ride to her house this afternoon. Discharge Plan Discharge Clinical Impression: Methamphetamine use, Homeless, Blister, Athlete's foot Patient Disposition: Home, Self-Care Condition: Stable Instructions: Terbinafine (On the skin), Methamphetamine Use Disorder (ED), Skin Yeast Infection (ED) Additional Instructions: 1. For your blister. Please keep the Band-Aid in place today. Change the Band- Aid and reapply antibiotic ointment once per day. Please try to wear socks and get proper shoes to protect her feet from rubbing and blisters. Monitor the blistered area carefully. If you developed surrounding redness, pus draining from the blister, fever, or have worsening pain, please see your doctor or come back to the ER right away to be rechecked 2. You do have signs of athlete's foot. Apply the topical antifungal (terbinafine) to treat this infection. 3. Please do your best to control your methamphetamine use. If you would like to talk to a social services technician about treatment. You can come back to the ER or talk your county fountain worker, or see your doctor. If you have any other concerns, please come back to the ER right away. Prescriptions: New terbinafine HCl 1 % cream 1 applic topical BID Qty: 30 0RF Follow Up/Referrals: ADA LANDIS DO [Primary Care Provider, Family Practice] Stand Alone Forms: [employer] Surgical Info Instructions
== END 2024-09-18 12:36 | disposition home or self-care (01) ==
PROVIDERS: Emergency Provider Emergency Medicine; PCP Student in an Organized Health Care Education/Training Program
DX: F15.90 Other stimulant use, unspecified, uncomplicated (principal); B35.3 Tinea pedis; S90.822A Blister (nonthermal), left foot, initial encounter; Z59.00 Homelessness unspecified
CPT/HCPCS: 99282; 99283

== ENCOUNTER 2024-12-16 19:48 | Emergency (ER) | payer MEDICAID, SELFPAY ==
[2024-12-16] VITALS (7 sets, daily range): BP systolic 152–160; BP diastolic 97–105; PULSE 97–102; RESP 20; TEMP 37.1; O2SAT 94–97; BMI 51.2
--- OUTSIDE RECORDS SUMMARY | 2024-12-16 19:50 | XMS_ITS | CCD ---
Author Name Interface, [email or web address] lity Address [address] [address] [facility] Address [address] [address] Reason for Visit Social History Date Name Value 10/06/2024 Sex Unknown
--- OUTSIDE RECORDS SUMMARY | 2024-12-16 19:50 | XMS_ITS | Clinical Summary ---
Author Organization [email or web address] Address [address] [place] [id number] Care Team Providers Care Grades 1 Thru 6 Visiting Teacher Name Role Phone Patricia Ball DO Primary Care Provider [phone] Allergies Active Allergy Reactions Criticality Noted Date [...] 50.0 to 59.9 in adult 07/31/2010 Immunizations Immunization Administration Dates Next Due Influenza, [...] Date Smoking Tobacco: Every Day Cigarettes 0.5 22.8 Started: 02/13/2002 Smokeless Tobacco: Never Tobacco Cessation:Ready [...] on file Legal Sex Male 6:39 AM [employer] [facility] Gender Identity Not on file Sexual Orientation Not on file Obstetrics History Last Filed Vital Signs Vital Sign Reading Time Taken Comments Blood Pressure 159/97 01/13/2024 2:31 PM [facility] Pulse 101 01/13/2024 2:31 PM [facility] Temperature 36.7 C (98.1 F) 02/12/2021 2:12 PM [facility] Respiratory Rate 22 02/12/2021 2:12 PM [facility] Oxygen Saturation 96% 01/13/2024 2:31 PM [facility] Inhaled Oxygen Concentration - - Weight 145.3 kg (320 lb 4.8 oz) 01/13/2024 2:31 PM [facility] Height 170 cm (5' 6.93) 01/13/2024 2:31 PM [facility] Body Mass Index 50.27 01/13/2024 2:31 PM [facility] Plan of Treatment Health Maintenance Due Date Last Done Comments Hepatitis B series for 19+ ( 1 of 3 - 19+ 3-dose series) 2002 Pneumococcal series for age 6-49 (1 of 2 - PCV) 2002 HPV series for age 9-45 (1 - 3-dose SCDM series) 2010 Influenza Vaccine (#1) 2024 10/10/2020, 2019 BMI (ht and wt on same day) for age 18+ 01/12/2025 01/13/2024, 05/17/2022, 09/14/2021, Additional history exists Depression screening for age 12+ 01/15/2025 01/16/2024, 01/16/2024, 01/16/2024, Additional history exists Tetanus booster 08/17/2027 08/16/2017, 04/19/2011 Lipids for age 35-44 01/12/2029 01/13/2024, 03/11/2022, 07/31/2010 RSV vaccine for adults or (1 - 1-dose 75+ series) 2058 HIV for age 15-65 Completed 03/11/2022 Hepatitis C screening for ag e 18-79 Completed 03/11/2022 Procedures Procedure Name Priority Date/Time Associated Diagnosis Comments LIPID PANEL W REFLEX MEASURED LDL Routine 01/13/2024 3:03 PM [facility] Lipid screening LC HIV-1/O/2, 4TH GENERATION Routine 03/11/2022 2:30 PM [facility] Screening for HIV (human immunodeficiency virus) LC HCV ANTIBODY RFX TO QUANT PCR Routine 03/11/2022 2:30 PM [facility] Need for hepatitis C screening test from Last 3 Months or Most Recently Relevant to Health Maintenance Results * LIPID PANEL W REFLEX MEASURED LDL (01/13/2024 3:03 PM [facility]) CHOLESTEROL, TOTAL 165 <200 mg/dL [facility] HDL CHOLESTEROL 53 > OR = 40 mg/dL [facility] TRIGLYCERIDES 138 <150 mg/dL [facility] LDL-CHOLESTEROL 88 mg/dL (calc) [facility] Comment: Reference range: <100 Desirable range <100 mg/dL for primary prevention; <70 mg/dL for patients with CHD or diabetic patients with > or = 2 CHD risk factors. LDL-C is now calculated using the Joel-Calero calculation, which is a validated novel method providing better accuracy than the Friedewald equation in the estimation of LDL-C. Joel LE et al. MIGUEL ANGEL. 2013;310(19): 9432-9052 (http://education.[employer].Bazaarvoice/faq/VAF693) CHOL/HDLC RATIO 3.1 <5.0 (calc) [facility] NON HDL CHOLESTEROL 112 <130 mg/dL (calc) [facility] Comment: For patients with diabetes plus 1 major ASCVD risk factor, treating to a non-HDL-C goal of <100 mg/dL (LDL-C of <70 mg/dL) is considered a therapeutic option. Blood BLOOD SPECIMEN / Unknown 01/13/2024 3:03 PM [facility] 01/13/2024 3:03 PM [facility] us Adei Ronniqra DO CHEMISTRY Final Result [facility] [address] [place] [address], [place] [phone] [facility] [address] [place] [address] * LC HCV ANTIBODY RFX TO QUANT PCR (03/11/2022 2:30 PM [facility] W[facility]LER) Pathologist [facility] HCV Ab <0.1 0.0 - 0.9 s/co ratio 03/14/2022 10:06 PM [facility] ESOTERIC TESTING (CET) Blood BLOOD SPECIMEN / Unknown Venipuncture / Unknown 03/11/2022 2:30 PM [facility] 03/11/2022 2:35 PM [facility] Narrative FOR ESOTERIC TESTING (CET) - 03/14/2022 10:06 PM [facility] Performed at: [address] [place] [id number] Bench Tool Maker: George Mooney MD, Phone: [phone] us Patricia Ball DO LABORATORY Final Result FOR ESOTERIC TESTING (CET) [facility] [place] [address], * LC HIV-1/O/2, 4TH GENERATION (03/11/2022 2:30 PM [facility] W[facility]LER) [facility] HIV Scr 4th Gen Non Reactive Non Reactive 03/13/2022 11:08 AM [facility]O WRESTLER FOR ESOTERIC TESTING (CET) Comment: HIV Negative HIV-1/HIV-2 antibodies and HIV-1 p24 antigen were NOT detected. There is no laboratory evidence of HIV infection. Blood BLOOD SPECIMEN / Unknown Venipuncture / Unknown 03/11/2022 2:30 PM [facility]ER 03/11/2022 2:35 PM [facility]ative [facility] ([facility] - 03/13/2022 11:08 AM [facility] W[facility]ER Performed at: [address] [id number] Bench Tool Maker: George Mooney MD, Phone: [phone] us Patricia Ball DO LABORATORY Final Result FOR ESOTERIC TESTING (CET) [facility] [place] [address], from Last 3 Months or Most Recently Relevant to Health Maintenance Insurance MEDICAID [employer] [address] [facility] [place] [place] [id number] [facility] [place] [id number] [facility] [place] [phone] Care Teams Grades 1 Thru 6 Visiting Teacher Relationship Specialty Start Date End Date Patricia Ball [place] [address] PCP - General Family Practice 02/14/24
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
--- OUTSIDE RECORDS SUMMARY | 2024-12-16 20:49 | XMS_ITS | CCD ---
Author Name Interface, [id number] lity Address [address] [address] [facility] Address [address] [address] Reason for Visit Social History Date Name Value 10/06/2024 Sex Unknown
--- OUTSIDE RECORDS SUMMARY | 2024-12-16 20:49 | XMS_ITS | CCD ---
Author Name Interface, [id number] lity Address [address] [address] [facility] Address [address] [address] Reason for Visit Social History Date Name Value 10/06/2024 Sex Unknown
== END 2024-12-16 21:25 | disposition home or self-care (01) ==
PROVIDERS: Emergency Provider Emergency Medicine; PCP Student in an Organized Health Care Education/Training Program
DX: M79.661 Pain in right lower leg (principal); M25.561 Pain in right knee; R19.7 Diarrhea, unspecified; V18.0XXA Pedal cycle driver injured in noncollision transport accident in nontraffic accident, initial encounter; Z59.01 Sheltered homelessness
CPT/HCPCS: 73562; 73590; 87493; 87507; 99283; 99284; 99285